=== PATIENT | female | born 1950 | race Caucasian/White ===

== ENCOUNTER 2021-04-04 08:11 | Outpatient (REF) | payer MEDICARE, SELFPAY ==
--- NOTE | ~2021-04-04 | XR_ITS ---
EXAMINATION: XR PELVIS CLINICAL INFORMATION: Pain COMPARISON: Previous x-ray most recent June 2019 TECHNIQUE: AP view of the pelvis. FINDINGS: There is a left hip replacement in satisfactory position. No fracture, dislocation or x-ray evidence of loosening is seen. There is arthritis at the right hip joint. Bones of the pelvis are unremarkable. Soft tissues are unremarkable. XR/XR pelvis 1-2V IMPRESSION: Satisfactory appearance of left hip replacement. Right hip arthritis.
== END 2021-04-04 08:12 | disposition home or self-care (01) ==
LOC: HO.HOSX 08:11
PROVIDERS: Visit Provider Orthopaedic Surgery
DX: M16.11 Unilateral primary osteoarthritis, right hip (principal); Z96.653 Presence of artificial knee joint, bilateral; Z96.642 Presence of left artificial hip joint
CPT/HCPCS: 72170; 99212

== ENCOUNTER → 2021-06-30 12:20 | Outpatient (BNVA) | payer MEDICARE, SELFPAY | PROVIDERS: PCP Family Medicine; Visit Provider Physician Assistant | DX: M16.11 Unilateral primary osteoarthritis, right hip (principal) | CPT/HCPCS: 99212 ==

== ENCOUNTER 2021-07-05 11:01 | Inpatient (IN) | payer MEDICARE, SELFPAY ==
[2021-06-28 11:57] VITALS: BP 130/83; PULSE 78; RESP 16; O2SAT 98; BMI 35.4
--- NOTE | 2021-06-28 12:33 | HO.ANESPROP2 ---
Documented by User: Lay Mansfield NP 07/04/21 10:19 HPI - Anesthesia Eval Consult details Narrative: 71yo F for Right Total Hip Cardiac cleared Elquis for new afib (to bridge with lovenox per cardiac clearance) s/p L CHAPINCITO 04/2019 with GA (no issues) *Allergy to oxycodone* PMFSH Active Problems Active Problems: All Active Problems (Updated 04/04/21 @ 10:58 by Robinson Gomez MD) Primary osteoarthritis of right hip (Acute) Past Medical History Medical History A-fib Acid reflux Arthritis History of transient ischemic attack Surgical History Surgical History History of back surgery History of hip surgery History of knee surgery Hx of bilateral cataract extraction Hx of colonoscopy Social History Social History Are you a primary skin care specialist to a significant other at home: No Do you presently have visiting nurse or other home services: No Alcohol intake: never Patient Tobacco Use Status: Former Tobacco user Quit Date: 2009 Tobacco use type: Cigarette Years Smoked: 50 Use of substances other than those prescribed or required for medical reasons: No Have you been hit, kicked, punched, or otherwise hurt by someone within the past year? If so, by whom?: No Spiritual Healthcare Practices: none Confucianism Healthcare Practices: none Cultural Healthcare Practices: none Are you DNR?: No Advance Directives: Yes Advance Directives Information Provided: Yes Advance Directives on File: Yes Advance Directives Date on File: 06/28/21 Recently lost weight without trying: No Current occupational status: retired Current occupation: right handed Narrative Narrative: No recent illness No CP/SOB with grocery shopping. Activity limited to pain Meds Allergies Allergy/AdvReac Type Severity Reaction Status Date / Time ibuprofen Allergy Intermediate Insomnia, Verified 06/30/21 12:34 leg tremors oxycodone [OXYCODONE] Allergy Intermediate SOB,PALPATATIONS, Verified 06/30/21 12:34 itching Home Medications Medication Instructions Recorded Confirmed Last Taken Type fluconazole 150 mg tablet 150 mg PO QWEEK 04/04/21 06/28/21 Unknown History omeprazole 20 mg capsule,delayed 20 mg PO DAILY PRN 04/04/21 06/28/21 07/05/21 History release Lovenox 06/28/21 07/04/21 History apixaban 5 mg tablet (Eliquis) 1 tab PO BID 06/28/21 06/28/21 06/30/21 History atorvastatin 80 mg tablet 1 tab PO BEDTIME 06/28/21 06/28/21 Unknown History diltiazem HCl 120 mg 1 cap PO DAILY 06/28/21 06/28/21 07/05/21 History capsule,extended release 24 hr Exam Exam Date and Time: June 28, 2021 1233 Height,Weight and Vital Signs: Height 5 ft 9 in Weight 108.862 kg Last Vital Signs Pulse 78 06/28/21 11:57 Resp 16 06/28/21 11:57 BP 130/83 06/28/21 11:57 Pulse Ox 98 06/28/21 11:57 Pertinent Lab Results Pertinent Lab Results: Lab Results 06/28/21 06/28/21 06/28/21 Range/Units 12:30 13:45 Unknown WBC 6.3 (4.8-10.8) X10*3/uL RBC 4.35 (4.20-5.50) X10*6/uL Hgb 13.2 (12.0-16.0) g/dl Hct 39.8 (37-47) % MCV 91.5 (80-98) fL MCH 30.3 (27.0-33.0) pg MCHC 33.2 (31.0-35.0) g/dl RDW 13.1 (11.0-16.0) % Plt Count 342 (160-400) X10*3/uL MPV 9.3 L (9.4-12.3) fL Absolute Nucleated RBC 0.000 (0.0-0.012) X10*3/uL Nucleated RBC % (auto) 0.0 (0.0-0.2) /100WBC Sodium (135-145) mmol/L Potassium (3.3-5.1) mmol/L Chloride (96-108) mmol/L Carbon Dioxide (22-29) mmol/L Anion Gap (12-20) BUN (9-16) mg/dL Creatinine (0.5-1.4) mg/dL Estim Creat Clear Calc Estimated GFR Random Glucose (60-115) mg/dL Calcium (8.4-10.2) mg/dL Nasal Screen MRSA (PCR) NEGATIVE (Negative) Nasal S. aureus Screen POSITIVE A (Negative) Nasal MRSA/S.aureus Interp SEE NOTE Blood Type A Negative Antibody Screen NEGATIVE 06/28/21 Range/Units Unknown WBC (4.8-10.8) X10*3/uL RBC (4.20-5.50) X10*6/uL Hgb (12.0-16.0) g/dl Hct (37-47) % MCV (80-98) fL MCH (27.0-33.0) pg MCHC (31.0-35.0) g/dl RDW (11.0-16.0) % Plt Count (160-400) X10*3/uL MPV (9.4-12.3) fL Absolute Nucleated RBC (0.0-0.012) X10*3/uL Nucleated RBC % (auto) (0.0-0.2) /100WBC Sodium 141 (135-145) mmol/L Potassium 4.6 (3.3-5.1) mmol/L Chloride 105 (96-108) mmol/L Carbon Dioxide 27 (22-29) mmol/L Anion Gap 14 (12-20) BUN 9 (9-16) mg/dL Creatinine 0.68 (0.5-1.4) mg/dL Estim Creat Clear Calc 96.8 Estimated GFR > 60 Random Glucose 85 (60-115) mg/dL Calcium 9.6 (8.4-10.2) mg/dL Nasal Screen MRSA (PCR) (Negative) Nasal S. aureus Screen (Negative) Nasal MRSA/S.aureus Interp Blood Type Antibody Screen Narrative Narrative: EKG 06/2021 NSR @ 80 Minimal voltage criteria for LVH, may be normal variant Inferior infarct cited on or before 04/2021 Abnormal ECG When compared to ECG of 06/2021 no significant change was found ECHO 04/2021 1.LV size is normal, LV wall thickness is mildly increased, mild concentric LVH, LV systolic function is normal. LVEF 55-60%. No RWMA. Diastolic function is indeterminate 2.LA is mildly dilated. No right to left shunting with bubble study. 3.RV is mildly dilated. RV systolic function is preserved. 4.Aortic root is normal in size. Mild dilation of ascending aorta @ 3.9cm 5. Mild MAC. Mitral valve appears mildly thickened and calcified. Mild Mitral Regurg 6. Pulm artery systolic pressure wnl Airway Mallampati Class: II TM Dist: >3cm Neck ROM: Full Adult Head Mouth w/Numbe Teeth: 1. Crowned Loose/Missing/Broken Teeth: No (Crowns throughout) Heart: RRR Lungs: CTAB Assessment and Plan Assessment Anesthesia Assessment: Anesthesia Plan Discussed and PAT Visit Documented by User: Lida Corrales MD 07/05/21 12:02 REPLACED BY [facility] Past Medical History Medical History A-fib Acid reflux Arthritis History of transient ischemic attack Family History Family history of problems with anesthesia: No Surgical History Surgical History History of back surgery History of hip surgery History of knee surgery Hx of bilateral cataract extraction Hx of colonoscopy History of Problems with Anesthesia: No Social History Social History Are you a primary skin care specialist to a significant other at home: No Do you presently have visiting nurse or other home services: No Alcohol intake: never Patient Tobacco Use Status: Former Tobacco user Quit Date: 2009 Tobacco use type: Cigarette Years Smoked: 50 Use of substances other than those prescribed or required for medical reasons: No Have you been hit, kicked, punched, or otherwise hurt by someone within the past year? If so, by whom?: No Spiritual Healthcare Practices: none Confucianism Healthcare Practices: none Cultural Healthcare Practices: none Are you DNR?: No Advance Directives: Yes Advance Directives Information Provided: Yes Advance Directives on File: Yes Advance Directives Date on File: 06/28/21 Recently lost weight without trying: No Current occupational status: retired Current occupation: right handed Meds Allergies Allergy/AdvReac Type Severity Reaction Status Date / Time ibuprofen Allergy Intermediate Insomnia, Verified 06/30/21 12:34 leg tremors oxycodone [OXYCODONE] Allergy Intermediate SOB,PALPATATIONS, Verified 06/30/21 12:34 itching Home Medications Medication Instructions Recorded Confirmed Last Taken Type fluconazole 150 mg tablet 150 mg PO QWEEK 04/04/21 06/28/21 Unknown History omeprazole 20 mg capsule,delayed 20 mg PO DAILY PRN 04/04/21 06/28/21 07/05/21 History release Lovenox 06/28/21 07/04/21 History apixaban 5 mg tablet (Eliquis) 1 tab PO BID 06/28/21 06/28/21 06/30/21 History atorvastatin 80 mg tablet 1 tab PO BEDTIME 06/28/21 06/28/21 Unknown History diltiazem HCl 120 mg 1 cap PO DAILY 06/28/21 06/28/21 07/05/21 History capsule,extended release 24 hr Exam Airway Adult Head Mouth w/Numbe Teeth: 1. Crowned Assessment and Plan Final Anesthetic Review Family History of Problems with Anesthesia: No History of Problems with Anesthesia: No NPO: Yes Final Preanesthetic Review: No Changes in Pt Med Stat, Meds/Allgs Chart Reviewed, Consent Obtained/Reviewed and Anes Risks/Benef Reviewed Patient Risk: Intermediate Procedure Risk: Intermediate Assessment/Block/Sedation in : Assess/Block/Sedation- Anesthetic Plan Anesthetic Plan: GA
[2021-06-28 15:24] LABS: MRSA Nasal PCR NEGATIVE (Negative); SA Nasal PCR POSITIVE (Negative)
[2021-06-28 15:27] LABS: Anion Gap 14 (12-20); Blood Urea Nitrogen 9 mg/dL (9-16); Calcium 9.6 mg/dL (8.4-10.2); Carbon Dioxide 27 mmol/L (22-29); Chloride 105 mmol/L (96-108); Creatinine Clr Calc Pharmacy 96.8; Estimated Glomerular Filt Rate > 60; Glucose Random 85 mg/dL (60-115); Hematocrit 39.8 % (37-47); Hemoglobin 13.2 g/dl (12.0-16.0); Mean Corpuscular HGB Conc 33.2 g/dl (31.0-35.0); Mean Corpuscular Hemoglobin 30.3 pg (27.0-33.0); Mean Corpuscular Volume 91.5 fL (80-98); Mean Platelet Volume 9.3 fL (9.4-12.3); Platelet Count 342 X10*3/uL (160-400); Potassium 4.6 mmol/L (3.3-5.1); Red Blood Count 4.35 X10*6/uL (4.20-5.50); Red Cell Distribution Width 13.1 % (11.0-16.0); Sodium 141 mmol/L (135-145); White Blood Count 6.3 X10*3/uL (4.8-10.8)
[2021-07-05] VITALS (9 sets, daily range): BP systolic 115–149; BP diastolic 55–85; PULSE 70–88; RESP 6–19; TEMP 36–37.1; O2SAT 90–99
--- NOTE | ~2021-07-05 | XR_ITS ---
EXAMINATION: XR PELVIS CLINICAL INFORMATION: Right hip replacement COMPARISON: Previous x-ray March 2021 TECHNIQUE: AP view of the pelvis. FINDINGS: There is a new right hip replacement in satisfactory position. No fracture or dislocation is seen. Soft tissues are normal. XR/XR pelvis 1-2V IMPRESSION: Satisfactory appearance of right hip replacement.
[2021-07-05] MEDS: Lactated Ringers 1,000 ML 100 ML IVCONT (11:31)
[2021-07-05 11:49] LABS: COVID-19 Test Negative (Negative)
--- NOTE | 2021-07-05 11:50 | MHC.SHP ---
Pre-Procedural Eval Section A Date of Service: 07/05/21 The patient is an INPATIENT: No Changes since office visit: Yes Patient answered all questions; No Cold of Flu in the past 2 weeks, No New Medical Problems and No Changes in Medication The History & Physical has been completed within 30 days and I have reviewed it.: Yes Section B Chief Complaint: RT CHAPINCITO Allergies: Allergies Allergy/AdvReac Type Severity Reaction Status Date / Time ibuprofen Allergy Intermediate Insomnia, Verified 06/30/21 12:34 leg tremors oxycodone [OXYCODONE] Allergy Intermediate SOB,PALPATATIONS, Verified 06/30/21 12:34 itching Plan I have reviewed the history and physical and performed a pertinent physical examination on my patient. No changes have occurred unless specified.
--- NOTE | 2021-07-05 14:50 | P.BOP_ITS ---
Brief Operative Note Date of Service: 07/05/21 Pre-op diagnosis: right hip OA Post-op diagnosis: same Procedure: right CHAPINCITO Implants: Karley trident2 54 wityh 20 deg lip liner and accolade2 #4 132 with +2.5 36 ceramic Surgeon: Robinson Gomez MD Anesthesia: GLMA and local Was an Creamery Worker used for this Procedure?: Yes Creamery Worker: Susy Cordova Estimated blood loss (mL): 250 IV fluids (mL): 1,200 Pathology: other Condition: stable Disposition: PACU
--- NOTE | 2021-07-05 14:52 | W.PM.OPN ---
Operative Note Operative Note Date of Service: 07/05/21 Narrative: Pre-op diagnosis: right hip OA Post-op diagnosis: same Procedure: right CHAPINCITO Implants: Karley trident2 54 wityh 20 deg lip liner and accolade2 #4 132 with +2.5 36 ceramic Surgeon: Robinson Gomez MD Anesthesia: GLMA and local Was an Fish Hatchery Supervisor used for this Procedure?: Yes Fish Hatchery Supervisor: Susy Cordova Estimated blood loss (mL): 250 IV fluids (mL): 1,200 Pathology: other Condition: stable Disposition: PACU Procedure in detail: Patient was brought into the operating room and placed in the lateral decubitus position. All bony prominences were well padded and the limb was prepped and draped in standard sterile fashion. Time-out was called to identify proper site procedure proper surgeon IV antibiotics and 1 g of transamix acid were administered. I began by making a curvilinear incision over the posterolateral aspect of the greater trochanter. Dissection was taken down to the tensor fascia which was incised in line with the incision and a Charnley retractor was placed. Cautery was used to maintain hemostasis as well as the Werewolf (johnson and Nephew). The hip was internally rotated and the external rotators were identified. The vessels were cauterized and a full-thickness capsular/external rotator layer was developed starting just proximal to the piriformis. THis layer was tagged and a dull Hohmann retractor was placed underneath the neck in the hip was dislocated. ___The head was eburnated. A neck cut was made 1 cm proximal to the lesser trochanter and the head and neck were removed and measured on the back table. I then placed my anterior-posterior acetabular retractors and performed a labrectomy. The head measured a 50____ I medialized after removeing the fovea and the labrum. I then sequentially reamed up to a size _54_ and bleeding bone and impacted at approximately 45 degrees of inclination and 25 degrees of version. I then placed a __20 deg liner and turned my attention to the femur. I identified the piriformis insertion and used this as a starting point for my sonjaie cutter. The medius tendon was protected with a Hibs retractor. I then used a Charnley awl to identify the canal and a curved curette to remove the lateral bone. I then sequentially broached in the patient's natural version to a size _4___ and placed my trial implants. Using a ____+2.5 I took the hip through range of motion. I was satisfied with the stability and length. Therefore I removed all instrumentation copiously irrigated placed my final femoral implant. I again took the hip through range of motion and was satisfied with the stability and length and so my final femoral head was impacted in place. I then irrigated for 3 minutes with iodine and placed 1 g of local TXA. I then performed a capsular closure with FiberWire, Suleman's fascia with 0 Vicryl, subcuticular with 2-0 vicryl and skin with jaquelin. Patient was placed into a sterile dressing. Radiographs were obtained at the completion of the case and I was satisfied with the component position. Patient was extubated brought to the recovery room in stable condition.
[2021-07-05] MEDS: 0.9 % Sodium Chloride Flush 3 ML SYRINGE IVFLUSH (16:32)
[2021-07-05] MEDS: Dextrose 5 % and 0.9 % NaCl 1,000 ML 80 ML IVCONT (16:32)
[2021-07-05] MEDS: Acetaminophen 325 MG TABLET 650 MG PO ×2 (16:36→22:27)
--- NOTE | 2021-07-05 16:51 | P.CONHOSP_ITS ---
History of Present Illness Data of Consult Service Date: 07/05/21 Requesting physician: Robinson Gomez Primary Care Provider: Rebecca Reyes MD HPI Reason for consult: Med management 71-year-old female status post right total hip replacement; asked to see for med management. Doing excellent postop. Has been out of bed to bathroom without issue. Utilizing only Tylenol for pain. No other focal complaints Review of Systems Review of Systems: Denies chest pain Denies shortness of breath Denies nausea vomiting PMFSH Medical History A-fib Acid reflux Arthritis History of transient ischemic attack Pertinent family history: pt not aware of pertinent famhx Surgical History History of back surgery History of hip surgery History of knee surgery Hx of bilateral cataract extraction Hx of colonoscopy Social History Are you a primary critical care physician assistant to a significant other at home: No Do you presently have visiting nurse or other home services: No Alcohol intake: never Patient Tobacco Use Status: Former Tobacco user Quit Date: 2009 Tobacco use type: Cigarette Years Smoked: 50 Use of substances other than those prescribed or required for medical reasons: No Have you been hit, kicked, punched, or otherwise hurt by someone within the past year? If so, by whom?: No Spiritual Healthcare Practices: none Bahai Healthcare Practices: none Cultural Healthcare Practices: none Are you DNR?: No Advance Directives: Yes Advance Directives Information Provided: Yes Advance Directives on File: Yes Advance Directives Date on File: 06/28/21 Recently lost weight without trying: No Current occupational status: retired Current occupation: right handed Meds Allergies Allergy/AdvReac Type Severity Reaction Status Date / Time ibuprofen Allergy Intermediate Insomnia, Verified 06/30/21 12:34 leg tremors oxycodone [OXYCODONE] Allergy Intermediate SOB,PALPATATIONS, Verified 06/30/21 12:34 itching Active Medications: Current Medications Acetaminophen (Acetaminophen 325 Mg Tablet) 650 mg PO Q6H PRN PRN Reason: Pain, Mild (Pain Scale 1-3) Last Admin: 07/05/21 16:36 Dose: 650 mg Documented by: Docusate Sodium (Docusate Sodium 100 Mg Capsule) 100 mg PO BID [facility] Dextrose/Sodium Chloride (D5ns) 1,000 mls @ 80 mls/hr IVCONT .[id number] [facility] Last Admin: 07/05/21 16:32 Dose: 80 mls/hr Documented by: Cefazolin Sodium/Dextrose (Ancef) 2 gm in 50 mls @ 100 mls/hr IV POSTOP [facility] Morphine Sulfate (Morphine Sulfate Immed Release 15 Mg Tablet) 15 mg PO Q4H PRN PRN Reason: Pain, Moderate (Pain Scale 4-6 Ondansetron HCl (Ondansetron Hcl 4 Mg/2 Ml Vial) 4 mg IVPUSH Q8H PRN PRN Reason: Nausea and Vomiting Sodium Chloride (0.9 % Sodium Chloride Flush 3 Ml Syringe) 3 ml IVFLUSH QSHIFT [facility] Last Admin: 07/05/21 16:32 Dose: 3 ml Documented by: Home Medications Medication Instructions Recorded Confirmed Last Taken Type fluconazole 150 mg tablet 150 mg PO QWEEK 04/04/21 06/28/21 Unknown History omeprazole 20 mg capsule,delayed 20 mg PO DAILY PRN 04/04/21 06/28/21 07/05/21 History release Lovenox 06/28/21 07/04/21 History apixaban 5 mg tablet (Eliquis) 1 tab PO BID 06/28/21 06/28/21 06/30/21 History atorvastatin 80 mg tablet 1 tab PO BEDTIME 06/28/21 06/28/21 Unknown History diltiazem HCl 120 mg 1 cap PO DAILY 06/28/21 06/28/21 07/05/21 History capsule,extended release 24 hr Physical Exam Vital Signs and Narrative: Vital Signs: Last Vital Signs Temp 97.7 F 07/05/21 16:00 Pulse 81 07/05/21 16:00 Resp 19 07/05/21 16:00 BP 123/65 07/05/21 16:00 Pulse Ox 93 07/05/21 16:00 Body Mass Index 35.4 Resp: Auscultation: clear to auscultation bilaterally, no rales, no rhonchi and no wheezes Cardio: Rate: regular rate Rhythm: regular rhythm Heart sounds: S1 normal heart sound present, S2 normal heart sound present and no murmurs GI: Other: Soft nontender nondistended with normoactive bowel sounds. There is no overt peritoneal signs Extrem: Other: No edema bilaterally. Distal pulses intact. Dressing to right hip clean dry and intact Results Labs CBC and Chem 7: 06/28/21 Unknown 06/28/21 Unknown Labs: Laboratory Results - last 24 hr 07/05/21 10:59 COVID-19 (TOMMY) Negative COVID-19 Clin Com See Note Imaging Radiologist's Impressions: Impressions Pelvis X-Ray 07/05/21 13:51 IMPRESSION: Satisfactory appearance of right hip replacement. Assessment and Plan (1) Primary osteoarthritis of right hip: Status: Acute (2) Hyperlipidemia: Status: Acute (3) Paroxysmal atrial fibrillation: Status: Acute
[2021-07-05] MEDS: Docusate Sodium 100 MG CAPSULE PO (22:27)
[2021-07-05] MEDS: Atorvastatin Calcium 80 MG TABLET PO (22:28)
[2021-07-06] VITALS (9 sets, daily range): BP systolic 127–143; BP diastolic 55–80; PULSE 81–95; RESP 18; TEMP 36.1–38.1; O2SAT 95–98
[2021-07-06] MEDS: Dextrose 5 % and 0.9 % NaCl 1,000 ML 80 ML IVCONT ×2 (04:34→16:18)
[2021-07-06 05:42] LABS: MANUAL DIFF FLAG NO
[2021-07-06 05:52] LABS: Basophils Percent Auto 0.1 % (0-2); Eosinophils Percent Auto 0.1 % (0-4); Hematocrit 32.1 % (37-47); Hemoglobin 10.6 g/dl (12.0-16.0); Imm Gran Abs Auto 0.03 X10*3/uL (0.00-0.03); Imm Gran Pct Auto 0.3 % (0.0-0.4); Lymphocytes Percent Auto 11.3 % (20-40); Mean Corpuscular Hemoglobin 30.4 pg (27.0-33.0); Mean Platelet Volume 8.9 fL (9.4-12.3); Monocytes Absolute Auto 0.8 X10*3/uL (0.1-1.2); Monocytes Percent Auto 9.3 % (2-11); Neutrophils Absolute Auto 6.9 X10*3/uL (2.0-8.3); Neutrophils Percent Auto 78.9 % (45-73); Platelet Count 251 X10*3/uL (160-400); Red Blood Count 3.49 X10*6/uL (4.20-5.50); Red Cell Distribution Width 13.2 % (11.0-16.0); White Blood Count 8.7 X10*3/uL (4.8-10.8)
[2021-07-06 06:34] LABS: Anion Gap 15 (12-20); Blood Urea Nitrogen 9 mg/dL (9-16); Calcium 8.6 mg/dL (8.4-10.2); Carbon Dioxide 22 mmol/L (22-29); Chloride 106 mmol/L (96-108); Creatinine Clr Calc Pharmacy 106.2; Estimated Glomerular Filt Rate > 60; Glucose Fasting 139 mg/dL (60-99); Potassium 4.3 mmol/L (3.3-5.1); Sodium 139 mmol/L (135-145)
--- NOTE | 2021-07-06 07:54 | P.PNOP_ITS ---
Subjective Subjective Date of Service: 07/06/21 Interval history: POD1 s/p RTHA. Patient is resting comfortably in the chair. Pain is well managed. No overnight events. No additional complaints. Physical Exam Vital Signs: Vital Signs: Last Vital Signs Temp 97 F 07/06/21 04:00 Pulse 87 07/06/21 04:00 Resp 18 07/06/21 04:00 BP 141/70 H 07/06/21 04:00 Pulse Ox 96 07/06/21 04:00 Body Mass Index 35.4 Const: General: cooperative, healthy appearing and no acute distress Resp: Effort & Inspection: normal respiratory effort and able to speak in complete sentences Cardio: Rate: regular rate Peripheral pulses: Peripheral pulses 2+ throughout GI: Palpation (GI): Soft to palpation Skin: Lesions: no lesions Rashes: no rashes Extrem: Other: Right hip no ecchymosis, redness, or drainage. Aquacel is clean, dry, and intact. NVI. Procedures Date of Service Date of Service: 07/06/21 Progress Note: A&P Assessment and plan (1) S/P total hip arthroplasty: Status: Acute Assessment and Plan: Continue pain mgmnt Begin Lovenox for dvt ppx begin PT for RTHA Dispo planning-Pending PT eval, pain mgmnt Fall Risk Details Current Medications: Current Medications Acetaminophen (Acetaminophen 325 Mg Tablet) 650 mg PO Q6H PRN PRN Reason: Pain, Mild (Pain Scale 1-3) Last Admin: 07/05/21 22:27 Dose: 650 mg Documented by: Atorvastatin Calcium (Atorvastatin Calcium 80 Mg Tablet) 80 mg PO BEDTIME [facility] Last Admin: 07/05/21 22:28 Dose: 80 mg Documented by: Diltiazem HCl (Diltiazem Hcl Cd 120 Mg Cap.Er.Deg) 120 mg PO DAILY [facility]; Protocol Docusate Sodium (Docusate Sodium 100 Mg Capsule) 100 mg PO BID [facility] Last Admin: 07/05/21 22:27 Dose: 100 mg Documented by: Enoxaparin Sodium (Enoxaparin Sodium 40 Mg/0.4 Ml Syringe) 40 mg SUBCUT Q24H [facility] Dextrose/Sodium Chloride (D5ns) 1,000 mls @ 80 mls/hr IVCONT .[id number] [facility] Last Admin: 07/06/21 04:34 Dose: 80 mls/hr Documented by: Cefazolin Sodium/Dextrose (Ancef) 2 gm in 50 mls @ 100 mls/hr IV POSTOP [facility] Morphine Sulfate (Morphine Sulfate Immed Release 15 Mg Tablet) 15 mg PO Q4H PRN PRN Reason: Pain, Moderate (Pain Scale 4-6 Omeprazole (Omeprazole 20 Mg Capsule.Dr) 20 mg PO DAILY PRN PRN Reason: Gastric Reflux Ondansetron HCl (Ondansetron Hcl 4 Mg/2 Ml Vial) 4 mg IVPUSH Q8H PRN PRN Reason: Nausea and Vomiting Sodium Chloride (0.9 % Sodium Chloride Flush 3 Ml Syringe) 3 ml IVFLUSH QSHIFT [facility] Last Admin: 07/06/21 07:33 Dose: Not Given Documented by: Time Spent With Patient Time: Total time spent is greater than 50% in coordination of care (as do cumented) at patient's floor/unit and/or counseling patient: Time with patient: less than 15 minutes Quality Stroke Does the patient have a stroke diagnosis?: No VTE Prior VTE?: No VTE Risk Level:: Surgical - very high VTE Device Contraindication: N/A - Device Ordered VTE Drug Contraindication: N/A - Med Ordered
[2021-07-06] MEDS: dilTIAZem HCL CD 120 MG CAP.ER.DEG PO (08:37)
[2021-07-06] MEDS: Acetaminophen 325 MG TABLET 650 MG PO ×2 (08:37→19:33)
[2021-07-06] MEDS: Docusate Sodium 100 MG CAPSULE PO ×2 (08:37→19:32)
--- NOTE | 2021-07-06 11:08 | P.PNIM_ITS ---
Subjective Subjective Date of Service: 07/06/21 Interval History: Doing excellent postop day 1. Ambulated in the hallway with walker. Pain control adequate. No complaints Review of Systems Denies chest pain Denies short of breath Denies nausea Physical Exam Vital Signs: Vital Signs: Last Vital Signs Temp 98.1 F 07/06/21 07:52 Pulse 81 07/06/21 09:10 Resp 18 07/06/21 07:52 BP 134/64 07/06/21 09:10 Pulse Ox 98 07/06/21 07:52 Body Mass Index 35.4 Const: General: no acute distress Resp: Auscultation: clear to auscultation bilaterally, no rales, no rhonchi and no wheezes Cardio: Rate: regular rate Rhythm: regular rhythm Heart sounds: S1 normal heart sound present, S2 normal heart sound present and no murmurs GI: Other: Soft nontender nondistended with normoactive bowel sounds. No peritoneal signs Neuro: Other: Age-appropriate; nonfocal Extrem: Other: Right hip dressing clean dry and intact General: Yes normal to inspection Objective Data Active Medications Acetaminophen (Acetaminophen 325 Mg Tablet) 650 mg PO Q6H PRN PRN Reason: Pain, Mild (Pain Scale 1-3) Last Admin: 07/06/21 08:37 Dose: 650 mg Documented by: MACHO Atorvastatin Calcium (Atorvastatin Calcium 80 Mg Tablet) 80 mg PO BEDTIME [facility] Last Admin: 07/05/21 22:28 Dose: 80 mg Documented by: ERIK Diltiazem HCl (Diltiazem Hcl Cd 120 Mg Cap.Er.Deg) 120 mg PO DAILY [facility]; Protocol Last Admin: 07/06/21 08:37 Dose: 120 mg Documented by: MACHO Docusate Sodium (Docusate Sodium 100 Mg Capsule) 100 mg PO BID [facility] Last Admin: 07/06/21 08:37 Dose: 100 mg Documented by: MACHO Enoxaparin Sodium (Enoxaparin Sodium 40 Mg/0.4 Ml Syringe) 40 mg SUBCUT Q24H [facility] Dextrose/Sodium Chloride (D5ns) 1,000 mls @ 80 mls/hr IVCONT .[id number] [facility] Last Admin: 07/06/21 04:34 Dose: 80 mls/hr Documented by: ERIK Cefazolin Sodium/Dextrose (Ancef) 2 gm in 50 mls @ 100 mls/hr IV POSTOP JT Morphine Sulfate (Morphine Sulfate Immed Release 15 Mg Tablet) 15 mg PO Q4H PRN PRN Reason: Pain, Moderate (Pain Scale 4-6 Omeprazole (Omeprazole 20 Mg Capsule.Dr) 20 mg PO DAILY PRN PRN Reason: Gastric Reflux Ondansetron HCl (Ondansetron Hcl 4 Mg/2 Ml Vial) 4 mg IVPUSH Q8H PRN PRN Reason: Nausea and Vomiting Sodium Chloride (0.9 % Sodium Chloride Flush 3 Ml Syringe) 3 ml IVFLUSH QSHIFT JT Last Admin: 07/06/21 07:33 Dose: Not Given Documented by: COTEMA Non-Admin Reason: IV Running Labs CBC & Chem 7: 07/06/21 05:26 07/06/21 05:26 Labs: Laboratory Results - last 24 hr 07/05/21 07/06/21 07/06/21 10:59 05:26 05:26 MCV 92.0 MCH 30.4 MCHC 33.0 RDW 13.2 Plt Count 251 D MPV 8.9 L Immature Gran % (Auto) 0.3 Neut % (Auto) 78.9 H Lymph % (Auto) 11.3 L [place] % (Auto) 9.3 Eos % (Auto) 0.1 Baso % (Auto) 0.1 Lymph # (Auto) 1.0 L [place] # (Auto) 0.8 Eos # (Auto) 0.0 Baso # (Auto) 0.0 Abs Immat Gran (auto) 0.03 Absolute Neuts (auto) 6.9 Absolute Nucleated RBC 0.000 Nucleated RBC % (auto) 0.0 Anion Gap 15 Estim Creat Clear Calc 106.2 Estimated GFR > 60 Fasting Glucose 139 H Calcium 8.6 D COVID-19 (TOMMY) Negative COVID-19 Clin Com See Note Assessment and Plan (1) S/P total hip arthroplasty: Status: Acute Assessment and Plan: Doing excellent. Plans as per Ortho (2) Paroxysmal atrial fibrillation: Status: Acute Assessment and Plan: Exam is in normal sinus rhythm however on Eliquis to routinely. Consider starting as opposed to Lovenox (3) Hyperlipidemia: Status: Acute (4) GERD (gastroesophageal reflux disease): Status: Acute Assessment and Plan: Continue PPI as ordered Assessment and Plan: Further plans based on clinical course of forthcoming data Quality Stroke Does the patient have a stroke diagnosis?: No VTE Prior VTE?: No VTE Risk Level:: Surgical - very high VTE Device Contraindication: Treatment Not Indicated VTE Drug Contraindication: N/A - Med Ordered
[2021-07-06] MEDS: Enoxaparin Sodium 40 MG/0.4 ML SYRINGE SUBCUT (11:42)
[2021-07-06] MEDS: Morphine Sulfate Immed Release 15 MG TABLET PO ×2 (11:45→19:32)
--- NOTE | 2021-07-06 13:12 | MHC.CM.PN ---
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 CM TO RETURN. PHYSICAL THERAPY IS RECOMMENDING HOME WITH SERVICES. THIS WILL BE DISCUSSED AT TIME OF ASSESSMENT.
--- NOTE | 2021-07-06 14:18 | MHC.CM.PN ---
Addendum entered by Laly Ponce 07/06/21 16:08: [facility] Addendum entered by Laly Ponce 07/06/21 15:27: [facility] UNABLE TO OFFER. [facility] IS ONLY REFERRAL CURRENTLY INTERESTED. CASE MANAGEMENT WILL FOLLOW UP Original Note: PATIENT HAD [facility] AT TIME OF LAST DC. SHE WOULD LIKE TO ATTEMPT THIS AGENCY AGAIN. REFERRAL PLACED AND CASE MANAGEMENT FOLLOWING
--- NOTE | 2021-07-06 15:08 | HO.POSTANES ---
Post Anesthesia Evaluation Post Anesthesia Evaluation Vital Signs: Vital Signs Temp Pulse Resp BP Pulse Ox 07/06/21 14:16 95 143/80 H 97 07/06/21 12:00 98.2 F 95 18 143/80 H 97 07/06/21 09:10 81 134/64 07/06/21 08:37 81 134/64 07/06/21 07:52 98.1 F 81 18 134/64 98 07/06/21 04:00 97 F 87 18 141/70 H 96 Anesthesia: General Mental Status: Awake Pain Control: Satisfactory Nausea/Vomiting: None Hydration: Adequate Anesthesia-Related Issues: No Anes. Related Issues
[2021-07-06] MEDS: Omeprazole 20 MG CAPSULE.DR PO (16:59)
[2021-07-06] MEDS: Atorvastatin Calcium 80 MG TABLET PO (19:34)
[2021-07-07] VITALS (9 sets, daily range): BP systolic 107–144; BP diastolic 58–93; PULSE 74–151; RESP 16–18; TEMP 36.2–37.3; O2SAT 92–98
--- NOTE | 2021-07-07 | ECG_ITS ---
Test Reason : rhythm Blood Pressure : / mmHG Vent. Rate : 109 BPM Atrial Rate : 300 BPM P-R Int : 000 ms QRS Dur : 082 ms QT Int : 300 ms P-R-T Axes : -88 -09 -71 degrees QTc Int : 404 ms Atrial flutter with variable A-V block Minimal voltage criteria for LVH, may be normal variant Inferior infarct , age undetermined Abnormal ECG When compared with ECG of 07-JUL-2021 10:57, Vent. rate has decreased ST less depressed in Anterolateral leads Referred By: Cristina Chakraborty Electronically Signed By:ANATOLIY WILL
[2021-07-07] MEDS: Dextrose 5 % and 0.9 % NaCl 1,000 ML 80 ML IVCONT (04:10)
[2021-07-07 06:04] LABS: Basophils Percent Auto 0.2 % (0-2); Eosinophils Absolute Auto 0.1 X10*3/uL (0.0-0.4); Eosinophils Percent Auto 0.6 % (0-4); Hematocrit 30.8 % (37-47); Hemoglobin 10.2 g/dl (12.0-16.0); Imm Gran Abs Auto 0.03 X10*3/uL (0.00-0.03); Imm Gran Pct Auto 0.3 % (0.0-0.4); Lymphocytes Absolute Auto 1.3 X10*3/uL (1.2-4.9); Lymphocytes Percent Auto 14.9 % (20-40); MANUAL DIFF FLAG NO; Mean Corpuscular HGB Conc 33.1 g/dl (31.0-35.0); Mean Corpuscular Volume 93.6 fL (80-98); Monocytes Percent Auto 11.9 % (2-11); Neutrophils Absolute Auto 6.2 X10*3/uL (2.0-8.3); Neutrophils Percent Auto 72.1 % (45-73); Platelet Count 212 X10*3/uL (160-400); Red Blood Count 3.29 X10*6/uL (4.20-5.50); Red Cell Distribution Width 13.6 % (11.0-16.0); White Blood Count 8.7 X10*3/uL (4.8-10.8)
[2021-07-07 07:02] LABS: Anion Gap 8 (12-20); Blood Urea Nitrogen 8 mg/dL (9-16); Calcium 7.9 mg/dL (8.4-10.2); Carbon Dioxide 26 mmol/L (22-29); Chloride 106 mmol/L (96-108); Creatinine Clr Calc Pharmacy 109.7; Estimated Glomerular Filt Rate > 60; Glucose Fasting 126 mg/dL (60-99); Potassium 4.1 mmol/L (3.3-5.1); Sodium 136 mmol/L (135-145)
--- NOTE | 2021-07-07 08:25 | PM.DS ---
DS: Providers Provider Date of Service: 07/07/21 Date of admission: 07/05/21 11:01 Primary care physician: Rebecca Reyes MD Consults: 07/05/21 15:56 Consult to Hospitalist Routine Consulting Provider: Hospitalist Reason For Exam: medical management, A-fib on eliquis DS: Summary Hospital Course Hospital Course: The patient underwent a successful RT total hip arthroplasty, was transferred to PACU and then to the floor to recover. During their stay, their vitals were stable, afebrile at 98.7. Labs were unremarkable, H/H 9.8/29.7 . POD 1 She was started on Lovenox for DVT ppx, they also received PT/OT services twice a day. POD 2 she was noted to be tachycardic and in a flutter with a HR of 103. Cardiology was consulted and she was placed on a halter monitor and started on a Cardize Drip. POD 3 she continued to be in aflutter with rapid heart rate, Eliquis resumed, lovenox d/c. She was switched to PO Cardizem. POD 5 her HR normalized and she was asymptomatic, Follow-up outpatient Holter monitor with her own machine adjuster helper.? Continue Eliquis 5 mg b.i.d..? Blood pressure is optimized, her dressing was changed, incision clean dry and intact, new Aquacel dressing applied and the plan was to be discharged home with vna services. Time Spent with Patient Time attestation: Total time spent providing and/or coordinating discharge services: Discharge coordination time: Less than 30 minutes Quality: Stroke Does the patient have a stroke diagnosis?: No Physical Exam Vital Signs: Vital Signs: Last Vital Signs Temp 97.7 F 07/07/21 08:00 Pulse 151 H 07/07/21 08:00 Resp 18 07/07/21 08:00 BP 118/93 H 07/07/21 08:00 Pulse Ox 95 07/07/21 08:00 Body Mass Index 35.4 Extrem: Other: incision clean dry and intact. Diony intact. No erythema or joint effusion. Calf supple nontender. Neurovascularly intact. DS: Data Data Completed and Pending Pending studies at discharge: Pending at discharge 07/05/21 14:07 Surgical [PTH] Routine Labs on day of discharge: Laboratory Results - last 24 hr 07/07/21 07/07/21 05:25 05:25 WBC 8.7 RBC 3.29 L Hgb 10.2 L Hct 30.8 L MCV 93.6 MCH 31.0 MCHC 33.1 RDW 13.6 Plt Count 212 MPV 9.0 L Immature Gran % (Auto) 0.3 Neut % (Auto) 72.1 Lymph % (Auto) 14.9 L [place] % (Auto) 11.9 H Eos % (Auto) 0.6 Baso % (Auto) 0.2 Lymph # (Auto) 1.3 [place] # (Auto) 1.0 Eos # (Auto) 0.1 Baso # (Auto) 0.0 Abs Immat Gran (auto) 0.03 Absolute Neuts (auto) 6.2 Absolute Nucleated RBC 0.000 Nucleated RBC % (auto) 0.0 Sodium 136 Potassium 4.1 Chloride 106 Carbon Dioxide 26 Anion Gap 8 L BUN 8 L Creatinine 0.60 Estim Creat Clear Calc 109.7 Estimated GFR > 60 Fasting Glucose 126 H Calcium 7.9 L D Discharge Plan Discharge Patient Disposition: Home Health Service Discharge Diagnosis: RT [place]APIN[place]O Referrals: [facility] [Outside] - 1 Week Susy Cordova PA-C [[facility]] - 1 Week (07/21/21 1:45 [facility] Susy Cordova PA-C) Discharge Medications: New docusate sodium 100 mg Capsule 100 mg PO BID 14 Days Qty: 28 RF: 0 acetaminophen 325 mg Tablet 650 mg PO Q6H PRN (Reason: Pain, Mild (Pain Scale 1-3)) 30 Days Qty: 240 RF: 3 diltiazem HCl [Cardizem CD] 240 mg capsule,extended release 24hr 240 mg PO DAILY 30 Days Qty: 30 RF: 0 Continued atorvastatin 80 mg tablet 1 tab PO BEDTIME RF: 0 Eliquis 5 mg tablet 1 tab PO BID RF: 0 fluconazole 150 mg tablet 150 mg PO QWEEK RF: 0 omeprazole 20 mg capsule,delayed release(DR/EC) 20 mg PO DAILY PRN (Reason: Gastric Reflux) RF: 0 Discontinued diltiazem HCl 120 mg capsule,extended release 24hr 1 cap PO DAILY RF: 0 Lovenox RF: 0 Discharge Orders: Discharge Order (Routine); Ordered 07/09/21 Ordered By: Nathaly Herring Diet: regular diet Activity on Discharge: Use cane or walker Stand Alone Forms: Patient Portal Discharge page Care Plan Goals: Restore function of joint Health Concerns: none Plan of Treatment: Physical Therapy Pain management DVT prophylaxis Assessment: Physical Therapy for Total hip arthroplasty: posterior precautions, gait training, ROM, strength Limit stair climbing No showering, no tub bath-keep dressing clean, dry and intact No driving x6 weeks Resume Eliquis Follow up with [facility] [place] 2 weeks Followup with machine adjuster helper for Cristel Ward Discharge Date/Time: 07/09/21 17:39
[2021-07-07] MEDS: Docusate Sodium 100 MG CAPSULE PO ×2 (08:44→20:40)
[2021-07-07] MEDS: dilTIAZem HCL CD 120 MG CAP.ER.DEG PO (08:44)
[2021-07-07] MEDS: 0.9 % Sodium Chloride Flush 3 ML SYRINGE IVFLUSH ×2 (08:44→23:45)
--- NOTE | 2021-07-07 09:15 | P.F2F_ITS ---
Service Date Service Date: 07/07/21 Encounter Date of encounter: 07/07/21 Reasons for Services Reason for physical therapy: home safety and mobility, therapeutic exercises, restore joint function, gait/transfer training, ADL training and energy conservation Reason for occupational therapy: home safety and mobility, therapeutic exercises, restore joint function, gait/transfer training, ADL training and energy conservation Overseeing Care: Robinson Gomez Homebound: Leaving the home is medically contraindicated at this time without the asist of a device and/or another person due th the listed conditions above and below. Reason homebound: unsteady gait / fall risk, pain with ambulation, poor balance / fall risk and unable to drive Homebound supporting statement: Pt. is considered home bound due to recent surgery. Unable to drive, poor balance, poor gait mechanics. Certification: Based on the above findings, I certify that this patient is confined to the home and needs intermittent long-term care, physical therapy and/or speech therapy, or continues to need occupational therapy. The patient is under my care, and I have initiated the establishment of the plan of care. The patient will be followed by a physician who will periodically review the plan of care.
--- NOTE | 2021-07-07 09:29 | MHC.CM.PN ---
Addendum entered by Laly Ponce 07/07/21 11:34: dc on hold per ortho Original Note: PATIENT IS DISCHARGED HOME TODAY WITH [facility]. PATIENT AGREES TO THIS PLAN. IMM 07/06 IN CHART. PATIENT STATES THAT SHE HAS ALREADY ARRANGED FOR TRANSPORT HOME. RN AWARE OF PLAN.
--- NOTE | 2021-07-07 10:46 | ECG_ITS ---
Test Reason : rapid heart rate Blood Pressure : / mmHG Vent. Rate : 149 BPM Atrial Rate : 149 BPM P-R Int : 104 ms QRS Dur : 162 ms QT Int : 302 ms P-R-T Axes : 000 -16 266 degrees QTc Int : 475 ms Sinus tachycardia with short LA Non-specific intra-ventricular conduction block Left ventricular hypertrophy with repolarization abnormality ( R in aVL , Terry product ) Inferior infarct , age undetermined ST depression in Anterolateral leads Abnormal ECG When compared with ECG of 23-APR-2019 14:02, LA interval has decreased Vent. rate has increased BY 89 BPM Questionable change in QRS duration Inferior infarct is now Present ST now depressed in Anterolateral leads Referred By: Kavya Marquis Electronically Signed By:ANATOLIY WILL
[2021-07-07] MEDS: Enoxaparin Sodium 40 MG/0.4 ML SYRINGE SUBCUT (12:28)
--- NOTE | 2021-07-07 12:28 | P.PNIM_ITS ---
Subjective Subjective Date of Service: 07/07/21 Interval History: Seen and examined this morning Seen in follow-up for medical consult Heart rate noted to be elevated. Patient denies chest pain, palpitations, shortness of breath Review of Systems Review of Systems: Yes all other systems are reviewed and are negative Constitutional Constitutional: Denies chills and Denies fever(s) Cardiovascular Cardiovascular: Denies chest pain Respiratory Respiratory: Denies cough Gastrointestinal Gastrointestinal: Denies abdominal pain Physical Exam Vital Signs: Vital Signs: Last Vital Signs Temp 99.1 F 07/07/21 12:00 Pulse 117 H 07/07/21 12:00 Resp 18 07/07/21 12:00 BP 144/91 H 07/07/21 12:00 Pulse Ox 92 07/07/21 12:00 Body Mass Index 35.4 Const: General: healthy appearing, comfortable, no acute distress, alert and awake Nutritional Appearance: well nourished Orientation/consciousness: patient oriented x3 HENMT: Head: Yes normocephalic and Yes atraumatic Eyes: Sclerae: sclerae normal Chest: Chest palpation & inspection: normal inspection of the chest Resp: Effort & Inspection: normal respiratory effort and no respiratory distress Auscultation: clear to auscultation bilaterally Cardio: Rate: tachycardic Rhythm: regular rhythm GI: Palpation (GI): Soft to palpation and nontender Neuro: General: patient oriented x3 Cranial nerves: Yes CN's II-XII intact bilaterally and Yes Bilaterally intact EOM present Objective Data Active Medications Acetaminophen (Acetaminophen 325 Mg Tablet) 650 mg PO Q6H PRN PRN Reason: Pain, Mild (Pain Scale 1-3) Last Admin: 07/06/21 19:33 Dose: 650 mg Documented by: JEWELS Atorvastatin Calcium (Atorvastatin Calcium 80 Mg Tablet) 80 mg PO BEDTIME [facility] Last Admin: 07/06/21 19:34 Dose: 80 mg Documented by: JEWELS Diltiazem HCl (Diltiazem Hcl Cd 120 Mg Cap.Er.Deg) 120 mg PO DAILY [facility]; Protocol Last Admin: 07/07/21 08:44 Dose: 120 mg Documented by: JAZMIN Docusate Sodium (Docusate Sodium 100 Mg Capsule) 100 mg PO BID [facility] Last Admin: 07/07/21 08:44 Dose: 100 mg Documented by: JAZMIN Enoxaparin Sodium (Enoxaparin Sodium 40 Mg/0.4 Ml Syringe) 40 mg SUBCUT Q24H [facility] Last Admin: 07/06/21 11:42 Dose: 40 mg Documented by: COTEMA Dextrose/Sodium Chloride (D5ns) 1,000 mls @ 80 mls/hr IVCONT .[id number] [facility] Last Admin: 07/07/21 04:10 Dose: 80 mls/hr Documented by: JEWELS Comments: down time Cefazolin Sodium/Dextrose (Ancef) 2 gm in 50 mls @ 100 mls/hr IV POSTOP JT Morphine Sulfate (Morphine Sulfate Immed Release 15 Mg Tablet) 15 mg PO Q4H PRN PRN Reason: Pain, Moderate (Pain Scale 4-6 Last Admin: 07/06/21 19:32 Dose: 15 mg Documented by: JEWELS Omeprazole (Omeprazole 20 Mg Capsule.Dr) 20 mg PO DAILY PRN PRN Reason: Gastric Reflux Last Admin: 07/06/21 16:59 Dose: 20 mg Documented by: COTEMA Ondansetron HCl (Ondansetron Hcl 4 Mg/2 Ml Vial) 4 mg IVPUSH Q8H PRN PRN Reason: Nausea and Vomiting Sodium Chloride (0.9 % Sodium Chloride Flush 3 Ml Syringe) 3 ml IVFLUSH QSHIFT [facility] Last Admin: 07/07/21 08:44 Dose: 3 ml Documented by: JAZMIN Labs CBC & Chem 7: 07/07/21 05:25 07/07/21 05:25 Labs: Laboratory Results - last 24 hr 07/07/21 07/07/21 05:25 05:25 MCV 93.6 MCH 31.0 MCHC 33.1 RDW 13.6 Plt Count 212 MPV 9.0 L Immature Gran % (Auto) 0.3 Neut % (Auto) 72.1 Lymph % (Auto) 14.9 L [place] % (Auto) 11.9 H Eos % (Auto) 0.6 Baso % (Auto) 0.2 Lymph # (Auto) 1.3 [place] # (Auto) 1.0 Eos # (Auto) 0.1 Baso # (Auto) 0.0 Abs Immat Gran (auto) 0.03 Absolute Neuts (auto) 6.2 Absolute Nucleated RBC 0.000 Nucleated RBC % (auto) 0.0 Anion Gap 8 L Estim Creat Clear Calc 109.7 Estimated GFR > 60 Fasting Glucose 126 H Calcium 7.9 L D Assessment and Plan (1) Paroxysmal atrial fibrillation: Status: Acute (2) Tachycardia: Status: Acute Assessment and Plan: This is a 71-year-old female with a history of paroxysmal atrial fibrillation on Eliquis, hyperlipidemia, acid reflux admitted for elective right total hip arthroplasty Tachycardia Patient asymptomatic History of AFib, will get EKG, check troponin Tele monitoring Continue diltiazem Follow HR closely Atrial fibrillation Continue diltiazem Consider resuming Eliquis, on Lovenox for now GERD Continue Prilosec POD #2 s/p R [place] Management per Orthopedic Service DVT prophylaxis-Lovenox Attending physician-Dr. Glover Quality Stroke Does the patient have a stroke diagnosis?: No VTE Prior VTE?: No VTE Risk Level:: Surgical - very high VTE Device Contraindication: Treatment Not Indicated VTE Drug Contraindication: N/A - Med Ordered
[2021-07-07] MEDS: dilTIAZem HCL 50 MG/10 ML VIAL 10 MG IVPUSH (13:05)
[2021-07-07 13:47] LABS: Troponin-I High Sensitivity 5.8 ng/L (<3.5-17.0)
--- NOTE | 2021-07-07 14:35 | MHC.CM.PN ---
[facility] MADE AWARE THAT PATIENT WILL REMAIN TONIGHT SECONDARY TO TACHYCARDIA. PATIENT IS ANXIOUS TO RETURN HOME AND HOPES THAT SHE WILL ON SUNDAY. PATIENT HAS TRANSPORT ARRANGED IF SO.
[2021-07-07] MEDS: dilTIAZem HCL 125 MG in 0.9 % Sodium Chloride 100 ML IVCONT (17:39)
[2021-07-07] MEDS: Omeprazole 20 MG CAPSULE.DR PO (19:07)
[2021-07-07] MEDS: Atorvastatin Calcium 80 MG TABLET PO (20:40)
[2021-07-07] MEDS: Metoprolol Tartrate 12.5 MG HALFTAB PO (23:08)
[2021-07-08] VITALS (10 sets, daily range): BP systolic 91–138; BP diastolic 49–60; PULSE 72–120; RESP 17–20; TEMP 36.5–37.2; O2SAT 93–97
[2021-07-08] MEDS: dilTIAZem HCL 125 MG in 0.9 % Sodium Chloride 100 ML 10 MG IVCONT ×2 (01:17→18:50)
[2021-07-08] MEDS: Dextrose 5 % and 0.9 % NaCl 1,000 ML 80 ML IVCONT (01:24)
[2021-07-08 06:06] LABS: MANUAL DIFF FLAG NO
[2021-07-08 06:23] LABS: Basophils Percent Auto 0.4 % (0-2); Eosinophils Absolute Auto 0.1 X10*3/uL (0.0-0.4); Eosinophils Percent Auto 0.8 % (0-4); Hematocrit 31.3 % (37-47); Hemoglobin 10.1 g/dl (12.0-16.0); Imm Gran Abs Auto 0.02 X10*3/uL (0.00-0.03); Imm Gran Pct Auto 0.2 % (0.0-0.4); Lymphocytes Absolute Auto 1.6 X10*3/uL (1.2-4.9); Lymphocytes Percent Auto 19.5 % (20-40); Mean Corpuscular HGB Conc 32.3 g/dl (31.0-35.0); Mean Corpuscular Volume 92.9 fL (80-98); Mean Platelet Volume 9.3 fL (9.4-12.3); Monocytes Absolute Auto 0.7 X10*3/uL (0.1-1.2); Monocytes Percent Auto 7.9 % (2-11); Neutrophils Percent Auto 71.2 % (45-73); Platelet Count 234 X10*3/uL (160-400); Red Blood Count 3.37 X10*6/uL (4.20-5.50); Red Cell Distribution Width 13.5 % (11.0-16.0); White Blood Count 8.4 X10*3/uL (4.8-10.8)
[2021-07-08 06:42] LABS: Anion Gap 11 (12-20); Blood Urea Nitrogen 6 mg/dL (9-16); Carbon Dioxide 24 mmol/L (22-29); Chloride 105 mmol/L (96-108); Creatinine Clr Calc Pharmacy 106.2; Estimated Glomerular Filt Rate > 60; Glucose Fasting 154 mg/dL (60-99); Potassium 3.6 mmol/L (3.3-5.1); Sodium 136 mmol/L (135-145)
[2021-07-08] MEDS: Metoprolol Tartrate 12.5 MG HALFTAB PO (10:10)
[2021-07-08] MEDS: Docusate Sodium 100 MG CAPSULE PO (10:10)
--- NOTE | 2021-07-08 10:12 | HO.PM.IMPN ---
Subjective Subjective Date of Service: 07/08/21 Interval History: seen and examined this morning follow up for a flutter Patient denies any chest pain, palpitations, shortness of breath, dizziness heart rate variable overnight despite Cardizem drip Eating well, voiding without difficulty, pain under adequate control Review of Systems Review of Systems: Yes all other systems are reviewed and are negative Constitutional Constitutional: Denies chills and Denies fever(s) Cardiovascular Cardiovascular: Denies chest pain Respiratory Respiratory: Denies cough Gastrointestinal Gastrointestinal: Denies abdominal pain Physical Exam Vital Signs: Vital Signs: Last Vital Signs Temp 97.7 F 07/08/21 08:00 Pulse 79 07/08/21 08:11 Resp 18 07/08/21 08:00 BP 102/55 L 07/08/21 08:11 Pulse Ox 94 07/08/21 08:11 Body Mass Index 35.4 Const: Nutritional Appearance: well nourished Orientation/consciousness: patient oriented x3 HENMT: Head: Yes normocephalic and Yes atraumatic Eyes: Sclerae: sclerae normal Resp: Effort & Inspection: normal respiratory effort and no respiratory distress Cardio: Heart sounds: S1 normal heart sound present and S2 normal heart sound present GI: Palpation (GI): Soft to palpation and nontender Neuro: General: patient oriented x3 Cranial nerves: Yes CN's II-XII intact bilaterally and Yes Bilaterally intact EOM present Extrem: Other: no leg edema Objective Data Active Medications Acetaminophen (Acetaminophen 325 Mg Tablet) 650 mg PO Q6H PRN PRN Reason: Pain, Mild (Pain Scale 1-3) Last Admin: 07/06/21 19:33 Dose: 650 mg Documented by: JEWELS Apixaban (Apixaban 5 Mg Tablet) 5 mg PO BID REPLACED BY [facility] Atorvastatin Calcium (Atorvastatin Calcium 80 Mg Tablet) 80 mg PO BEDTIME REPLACED BY [facility] Last Admin: 07/07/21 20:40 Dose: 80 mg Documented by: GLENN Docusate Sodium (Docusate Sodium 100 Mg Capsule) 100 mg PO BID REPLACED BY [facility] Last Admin: 07/07/21 20:40 Dose: 100 mg Documented by: GLENN Dextrose/Sodium Chloride (D5ns) 1,000 mls @ 80 mls/hr IVCONT .[id number] REPLACED BY [facility] Last Admin: 07/08/21 01:24 Dose: 80 mls/hr Documented by: ELAINE Cefazolin Sodium/Dextrose (Ancef) 2 gm in 50 mls @ 100 mls/hr IV POSTOP JT Diltiazem HCl 125 mg/ Sodium (Chloride) 125 mls @ 0 mls/hr IVCONT .Q0M REPLACED BY [facility]; Protocol Last Titration: 07/08/21 02:03 Dose: 5 mg/hr, 5 mls/hr Documented by: ELAINE Metoprolol Tartrate (Metoprolol Tartrate 12.5 Mg Halftab) 12.5 mg PO BID REPLACED BY [facility]; Protocol Last Admin: 07/07/21 23:08 Dose: 12.5 mg Documented by: GLENN Morphine Sulfate (Morphine Sulfate Immed Release 15 Mg Tablet) 15 mg PO Q4H PRN PRN Reason: Pain, Moderate (Pain Scale 4-6 Last Admin: 07/06/21 19:32 Dose: 15 mg Documented by: JEWELS Omeprazole (Omeprazole 20 Mg Capsule.Dr) 20 mg PO DAILY PRN PRN Reason: Gastric Reflux Last Admin: 07/07/21 19:07 Dose: 20 mg Documented by: GLENN Ondansetron HCl (Ondansetron Hcl 4 Mg/2 Ml Vial) 4 mg IVPUSH Q8H PRN PRN Reason: Nausea and Vomiting Sodium Chloride (0.9 % Sodium Chloride Flush 3 Ml Syringe) 3 ml IVFLUSH QSHIFT REPLACED BY [facility] Last Admin: 07/08/21 10:07 Dose: Not Given Documented by: ISHA Non-Admin Reason: IV Running Labs CBC & Chem 7: 07/08/21 05:51 07/08/21 05:51 Labs: Laboratory Results - last 24 hr 07/07/21 07/08/21 07/08/21 13:15 05:51 05:51 MCV 92.9 MCH 30.0 MCHC 32.3 RDW 13.5 Plt Count 234 MPV 9.3 L Immature Gran % (Auto) 0.2 Neut % (Auto) 71.2 Lymph % (Auto) 19.[address] [place] % (Auto) 7.9 Eos % (Auto) 0.8 Baso % (Auto) 0.4 Lymph # (Auto) 1.6 [place] # (Auto) 0.7 Eos # (Auto) 0.1 Baso # (Auto) 0.0 Abs Immat Gran (auto) 0.02 Absolute Neuts (auto) 6.0 Absolute Nucleated RBC 0.000 Nucleated RBC % (auto) 0.0 Anion Gap 11 L Estim Creat Clear Calc 106.2 Estimated GFR > 60 Fasting Glucose 154 H Calcium 8.0 L Troponin I High Sens 5.8 Assessment and Plan (1) Atrial flutter: Status: Acute Assessment and Plan: This is a 71-year-old female with a history of paroxysmal atrial fibrillation on Eliquis, hyperlipidemia, acid reflux admitted for elective right total hip arthroplasty Aflutter dx with afib about 1 month ago HR variable despite cardizem drip Patient asymptomatic seen by Cardiology, plan to start oral Cardizem and titrate off Cardizem drip Tele monitoring Eliquis resumed GERD Continue Prilosec POD #3 s/p R [place] Management per Orthopedic Service DVT prophylaxis-[place] Attending physician-Dr. Glover Quality Stroke Does the patient have a stroke diagnosis?: No VTE Prior VTE?: No VTE Risk Level:: Surgical - very high VTE Device Contraindication: Treatment Not Indicated VTE Drug Contraindication: N/A - Med Ordered
--- NOTE | 2021-07-08 10:16 | PM.CNCAR ---
History of Present Illness History of Present Illness Date of Service: 07/08/21 Requesting physician: Kavya Marquis Consult reason: other (Atrial flutter) Chief complaint: RT CHAPINCITO Narrative: I was requested to see the patient for postoperative tachycardia. Tachycardia happens to be atrial flutter with rapid ventricular response initially, subsequent EKG shows more controlled ventricular response. This was on IV Cardizem therapy. Patient 71-year-old female came as an outpatient for total hip replacement for arthritis. Patient underwent surgery on 07/06/2021 under general anesthesia. No immediate preoperative EKGs available and unsure whether patient presented in atrial flutter of was in sinus rhythm. EKG from [facility] from 06/29 shows normal sinus rhythm. Postoperative was noted to have tachycardia. EKG shows atrial flutter with 2 is to 1 conduction with rapid ventricular response. Heart rate during the surgery is within normal limits but reported EKG showing AF not sure if she was in atrial fibrillation during surgery. Patient has no symptoms. Denies any palpitations. Denies shortness of breath, orthopnea, PND. Heart rate was well controlled on 10 mg of Cardizem which was then overnight reduced to 5 mg for unclear reasons. This morning the heart rate is elevated at 110 beats per minute again. Denies lightheadedness, syncope. Her Eliquis was restarted. She was incidentally noted to have atrial fibrillation early June. In April she had suffered a TIA. Her echocardiogram done at [facility] in April showed normal LV ejection fraction with [id number] tricuspid regurgitation and mildly elevated right ventricular systolic pressure. Review of Systems Review of Systems: Yes all other systems are reviewed and are negative Constitutional: Constitutional: Reports no additional constitutional complaints Eyes: Eyes: Reports no additional eye complaints ENT: Reports system reviewed and no additional complaints, except as documented Cardiovascular: Cardiovascular: Reports no additional cardiovascular complaints Respiratory: Respiratory: Reports no additional respiratory complaints Gastrointestinal: Gastrointestinal: Reports no additional gastrointestinal complaints Genitourinary: Genitourinary: Reports no additional female genitourinary complaints Musculoskeletal: Musculoskeletal: Reports no additional musculoskeletal complaints Integumentary/Breasts: Skin/Breast: Reports system reviewed and no additional complaints, except as docu Neurologic: Reports system reviewed and no additional complaints, except as documented Psychiatric: Psychiatric: Reports no additional psychiatric complaints Endocrine: Endocrine: Reports no additional endocrine complaints Hematologic/Lymphatic: Hematologic/Lymphatic: Reports no additional hematologic/lymphatic complaints Allergic/Immunologic: Allergic/Immunologic: Reports no additional allergic/immunologic complaints [facility] Past Medical History Medical History A-fib Acid reflux Arthritis GERD (gastroesophageal reflux disease) History of transient ischemic attack Hyperlipidemia Paroxysmal atrial fibrillation Surgical History Surgical History History of back surgery History of hip surgery History of knee surgery Hx of bilateral cataract extraction Hx of colonoscopy S/P total hip arthroplasty Social History Social History Are you a primary clinical manager home care to a significant other at home: No Do you presently have visiting nurse or other home services: No Alcohol intake: never Patient Tobacco Use Status: Former Tobacco user Quit Date: 2009 Tobacco use type: Cigarette Years Smoked: 50 Use of substances other than those prescribed or required for medical reasons: No Currently Displaying Signs/Symptoms of Drug Intoxication Withdrawal: No Have you been hit, kicked, punched, or otherwise hurt by someone within the past year? If so, by whom?: No Spiritual Healthcare Practices: none Mandaen Healthcare Practices: none Cultural Healthcare Practices: none Are you DNR?: No Advance Directives: Yes Advance Directives Information Provided: Yes Advance Directives on File: Yes Advance Directives Date on File: 06/28/21 Do you have thoughts of harming others: None Do you have a plan to hurt others: No Plan Recently lost weight without trying: No Current occupational status: retired Current occupation: right handed Meds Allergies Allergy/AdvReac Type Severity Reaction Status Date / Time ibuprofen Allergy Intermediate Insomnia, Verified 06/30/21 12:34 leg tremors oxycodone [OXYCODONE] Allergy Intermediate SOB,PALPATATIONS, Verified 06/30/21 12:34 itching Active Medications: Current Medications Acetaminophen (Acetaminophen 325 Mg Tablet) 650 mg PO Q6H PRN PRN Reason: Pain, Mild (Pain Scale 1-3) Last Admin: 07/06/21 19:33 Dose: 650 mg Documented by: Apixaban (Apixaban 5 Mg Tablet) 5 mg PO BID JT Atorvastatin Calcium (Atorvastatin Calcium 80 Mg Tablet) 80 mg PO BEDTIME JT Last Admin: 07/07/21 20:40 Dose: 80 mg Documented by: Docusate Sodium (Docusate Sodium 100 Mg Capsule) 100 mg PO BID [facility] Last Admin: 07/08/21 10:10 Dose: 100 mg Documented by: Dextrose/Sodium Chloride (D5ns) 1,000 mls @ 80 mls/hr IVCONT .[id number] [facility] Last Admin: 07/08/21 01:24 Dose: 80 mls/hr Documented by: Cefazolin Sodium/Dextrose (Ancef) 2 gm in 50 mls @ 100 mls/hr IV POSTOP JT Diltiazem HCl 125 mg/ Sodium (Chloride) 125 mls @ 0 mls/hr IVCONT .Q0M [facility]; Protocol Last Titration: 07/08/21 02:03 Dose: 5 mg/hr, 5 mls/hr Documented by: Metoprolol Tartrate (Metoprolol Tartrate 12.5 Mg Halftab) 12.5 mg PO BID [facility]; Protocol Last Admin: 07/08/21 10:10 Dose: 12.5 mg Documented by: Morphine Sulfate (Morphine Sulfate Immed Release 15 Mg Tablet) 15 mg PO Q4H PRN PRN Reason: Pain, Moderate (Pain Scale 4-6 Last Admin: 07/06/21 19:32 Dose: 15 mg Documented by: Omeprazole (Omeprazole 20 Mg Capsule.Dr) 20 mg PO DAILY PRN PRN Reason: Gastric Reflux Last Admin: 07/07/21 19:07 Dose: 20 mg Documented by: Ondansetron HCl (Ondansetron Hcl 4 Mg/2 Ml Vial) 4 mg IVPUSH Q8H PRN PRN Reason: Nausea and Vomiting Sodium Chloride (0.9 % Sodium Chloride Flush 3 Ml Syringe) 3 ml IVFLUSH QSHIFT [facility] Last Admin: 07/08/21 10:07 Dose: Not Given Documented by: Home Medications Medication Instructions Recorded Confirmed Last Taken Type fluconazole 150 mg tablet 150 mg PO QWEEK 04/04/21 06/28/21 Unknown History omeprazole 20 mg capsule,delayed 20 mg PO DAILY PRN 04/04/21 06/28/21 07/05/21 History release apixaban 5 mg tablet (Eliquis) 1 tab PO BID 06/28/21 06/28/21 06/30/21 History atorvastatin 80 mg tablet 1 tab PO BEDTIME 06/28/21 06/28/21 Unknown History diltiazem HCl 120 mg 1 cap PO DAILY 06/28/21 06/28/21 07/05/21 History capsule,extended release 24 hr Physical Exam Vital Signs: Vital Signs: Last Vital Signs Temp 97.7 F 07/08/21 08:00 Pulse 79 07/08/21 08:11 Resp 18 07/08/21 08:00 BP 102/55 L 07/08/21 08:11 Pulse Ox 94 07/08/21 08:11 Body Mass Index 35.4 Const: General: cooperative, comfortable, no acute distress, alert and awake Nutritional Appearance: obese Orientation/consciousness: patient oriented x3 HENMT: Head: Yes normocephalic and Yes atraumatic Neck: Neck: Yes trachea midline, Yes supple and Yes no JVD Resp: Effort & Inspection: normal respiratory effort Auscultation: no rales and no wheezes Cardio: Jugular venous distension: no JVD Palpation: normal PMI Rate: tachycardic Rhythm: abnormal rhythm irregularly irregular Heart sounds: S1 normal heart sound present, S2 normal heart sound present, no click, no gallops and no murmurs GI: Auscultation: normal bowel sounds Skin: General skin exam: no rashes or lesions noted Neuro: General: patient oriented x3 and no focal motor deficits Psych: Appearance: grossly normal Results Labs and Meds Result diagrams: 07/08/21 05:51 07/08/21 05:51 Lab results: Laboratory Results - last 24 hr 07/07/21 07/08/21 07/08/21 13:15 05:51 05:51 WBC 8.4 RBC 3.37 L Hgb 10.1 L Hct 31.3 L MCV 92.9 MCH 30.0 MCHC 32.3 RDW 13.5 Plt Count 234 MPV 9.3 L Immature Gran % (Auto) 0.2 Neut % (Auto) 71.2 Lymph % (Auto) 19.5 L [place] % (Auto) 7.9 Eos % (Auto) 0.8 Baso % (Auto) 0.4 Lymph # (Auto) 1.6 [place] # (Auto) 0.7 Eos # (Auto) 0.1 Baso # (Auto) 0.0 Abs Immat Gran (auto) 0.02 Absolute Neuts (auto) 6.0 Absolute Nucleated RBC 0.000 Nucleated RBC % (auto) 0.0 Sodium 136 Potassium 3.6 Chloride 105 Carbon Dioxide 24 Anion Gap 11 L BUN 6 L Creatinine 0.62 Estim Creat Clear Calc 106.2 Estimated GFR > 60 Fasting Glucose 154 H Calcium 8.0 L Troponin I High Sens 5.8 EKG number 1 shows atrial flutter with 2 is to 1 av conduction. Assessment and Plan (1) Atrial flutter: Status: Acute Persistent atrial flutter without any symptoms or signs of cardiac decompensation. Unclear as to the duration but definitely postoperative. Rate is not adequately controlled. Would start on oral Cardizem 60 mg Q 6 hours and then after an hour taper and discontinue Cardizem drip. Hopefully with that she will be controlled. If arteries control by tomorrow can be discharged home with follow-up with Cardiology at [facility] in 7-10 days. This is to decide further course of action in regards to rate control versus rhythm control. Patient is on Eliquis 5 mg b.i.d.. She mention to me that this drug is very expensive for her. 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 Continue pain control. Continue ambulation as tolerated. Will follow the patient tomorrow. Procedures Date of Service Date of Service: 07/08/21
--- NOTE | 2021-07-08 10:55 | P.PNOP_ITS ---
Subjective Subjective Date of Service: 07/08/21 Interval history: POD 3 s/p RT CHAPINCITO No overnight events she is on heart rate monitor denies cp no concerns. Physical Exam Vital Signs: Vital Signs: Last Vital Signs Temp 97.7 F 07/08/21 08:00 Pulse 79 07/08/21 08:11 Resp 18 07/08/21 08:00 BP 102/55 L 07/08/21 08:11 Pulse Ox 94 07/08/21 08:11 Body Mass Index 35.4 Const: General: cooperative, healthy appearing and no acute distress Resp: Effort & Inspection: normal respiratory effort and able to speak in complete sentences Cardio: Rate: regular rate Peripheral pulses: Peripheral pulses 2+ throughout GI: Palpation (GI): Soft to palpation Skin: General skin exam: no rashes or lesions noted Extrem: Other: bandage No erythema or effusion. Calf supple nontender. Neurovascularly intact. Procedures Date of Service Date of Service: 07/08/21 Progress Note: A&P Assessment and plan (1) Primary osteoarthritis of right hip: Status: Acute Assessment and Plan: * Continue pain mgmnt * resume eliquis * PT/OT for RT CHAPINCITO * Dispo planning-Pending clearance from cardiology Fall Risk Details Current Medications: Current Medications Acetaminophen (Acetaminophen 325 Mg Tablet) 650 mg PO Q6H PRN PRN Reason: Pain, Mild (Pain Scale 1-3) Last Admin: 07/06/21 19:33 Dose: 650 mg Documented by: Apixaban (Apixaban 5 Mg Tablet) 5 mg PO BID [facility] Atorvastatin Calcium (Atorvastatin Calcium 80 Mg Tablet) 80 mg PO BEDTIME [facility] Last Admin: 07/07/21 20:40 Dose: 80 mg Documented by: Diltiazem HCl (Diltiazem Hcl 60 Mg Tablet) 60 mg PO Q6H JT; Protocol Docusate Sodium (Docusate Sodium 100 Mg Capsule) 100 mg PO BID JT Last Admin: 07/08/21 10:10 Dose: 100 mg Documented by: Cefazolin Sodium/Dextrose (Ancef) 2 gm in 50 mls @ 100 mls/hr IV POSTOP JT Diltiazem HCl 125 mg/ Sodium (Chloride) 125 mls @ 0 mls/hr IVCONT .Q0M JT; Protocol Last Titration: 07/08/21 02:03 Dose: 5 mg/hr, 5 mls/hr Documented by: Morphine Sulfate (Morphine Sulfate Immed Release 15 Mg Tablet) 15 mg PO Q4H PRN PRN Reason: Pain, Moderate (Pain Scale 4-6 Last Admin: 07/06/21 19:32 Dose: 15 mg Documented by: Omeprazole (Omeprazole 20 Mg Capsule.Dr) 20 mg PO DAILY PRN PRN Reason: Gastric Reflux Last Admin: 07/07/21 19:07 Dose: 20 mg Documented by: Ondansetron HCl (Ondansetron Hcl 4 Mg/2 Ml Vial) 4 mg IVPUSH Q8H PRN PRN Reason: Nausea and Vomiting Sodium Chloride (0.9 % Sodium Chloride Flush 3 Ml Syringe) 3 ml IVFLUSH QSHIFT [facility] Last Admin: 07/08/21 10:07 Dose: Not Given Documented by: Time Spent With Patient Time: Total time spent is greater than 50% in coordination of care (as documented) at patient's floor/unit and/or counseling patient: Time with patient: less than 15 minutes Quality Stroke Does the patient have a stroke diagnosis?: No VTE Prior VTE?: No VTE Risk Level:: Surgical - very high VTE Device Contraindication: Treatment Not Indicated VTE Drug Contraindication: N/A - Med Ordered
[2021-07-08] MEDS: dilTIAZem HCL 60 MG TABLET PO ×2 (11:10→16:27)
[2021-07-08] MEDS: Apixaban 5 MG TABLET PO ×2 (11:11→20:02)
--- NOTE | 2021-07-08 12:43 | MHC.CM.PN ---
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 CM WILL FOLLOW-UP W/APPLICATION ONCE RECEIVED.
--- NOTE | 2021-07-08 13:10 | PC.NURSE ---
1245 HR elevated to 135-140 Pt reports no S/S. skin W@D BP stable. was in bed talking on phone. reported by [facility] [place] be in [place] Fl[place]. Ortho ALYSHA Jain and hospitalist, Kavya MONTELONGO aware. Will be transferred [place] [facility]
--- NOTE | 2021-07-08 13:26 | MHC.CM.PN ---
Addendum entered by Monica Das RN 07/08/21 14:23: CM CONTACTED PT'S [employer] WHO REPORTED PT WILL NEED TO GO THROUGH HER OUTSIDE PROVIDER TO SIGN FINANCIAL ASSISTANCE FORM, PT IS AWARE AND HAS FORMS AT BEDSIDE. Original Note: PT IS TRANSFERRING TO [facility] [place], PLEASE HAVE [employer] SIGN ELIQUIS SCRIPT ON CHART TO FAX TO [facility] SO THEY CAN COVER COST, PT HAS PAPERWORK W/FAX NUMBER TO FAX APPLICATION BACK ONCE FILLED OUT BY CARDIOLGIST.
[2021-07-08] MEDS: 0.9 % Sodium Chloride Flush 3 ML SYRINGE IVFLUSH ×2 (16:28→20:02)
[2021-07-08] MEDS: Atorvastatin Calcium 80 MG TABLET PO (20:01)
[2021-07-09] VITALS (9 sets, daily range): BP systolic 106–168; BP diastolic 58–87; PULSE 19–112; RESP 16–20; TEMP 36–37.6; O2SAT 94–98
[2021-07-09] MEDS: dilTIAZem HCL 125 MG in 0.9 % Sodium Chloride 100 ML 10 MG IVCONT (06:08)
[2021-07-09 07:29] LABS: MANUAL DIFF FLAG NO
[2021-07-09 07:33] LABS: Basophils Percent Auto 0.4 % (0-2); Eosinophils Absolute Auto 0.2 X10*3/uL (0.0-0.4); Eosinophils Percent Auto 2.4 % (0-4); Hematocrit 29.7 % (37-47); Hemoglobin 9.8 g/dl (12.0-16.0); Imm Gran Abs Auto 0.03 X10*3/uL (0.00-0.03); Imm Gran Pct Auto 0.4 % (0.0-0.4); Lymphocytes Absolute Auto 1.4 X10*3/uL (1.2-4.9); Mean Corpuscular Hemoglobin 30.5 pg (27.0-33.0); Mean Corpuscular Volume 92.5 fL (80-98); Mean Platelet Volume 9.3 fL (9.4-12.3); Monocytes Absolute Auto 0.8 X10*3/uL (0.1-1.2); Monocytes Percent Auto 9.9 % (2-11); Neutrophils Absolute Auto 5.4 X10*3/uL (2.0-8.3); Neutrophils Percent Auto 68.9 % (45-73); Platelet Count 252 X10*3/uL (160-400); Red Blood Count 3.21 X10*6/uL (4.20-5.50); Red Cell Distribution Width 13.2 % (11.0-16.0); White Blood Count 7.9 X10*3/uL (4.8-10.8)
[2021-07-09 07:47] LABS: Anion Gap 12 (12-20); Blood Urea Nitrogen 7 mg/dL (9-16); Carbon Dioxide 24 mmol/L (22-29); Chloride 105 mmol/L (96-108); Creatinine Clr Calc Pharmacy 115.5; Estimated Glomerular Filt Rate > 60; Glucose Fasting 121 mg/dL (60-99); Potassium 3.7 mmol/L (3.3-5.1); Sodium 137 mmol/L (135-145)
[2021-07-09] MEDS: Apixaban 5 MG TABLET PO (08:59)
[2021-07-09] MEDS: dilTIAZem HCL 60 MG TABLET PO (08:59)
[2021-07-09] MEDS: Docusate Sodium 100 MG CAPSULE PO (09:00)
[2021-07-09] MEDS: 0.9 % Sodium Chloride Flush 3 ML SYRINGE IVFLUSH (09:00)
--- NOTE | 2021-07-09 10:07 | PM.PNORT ---
Subjective Subjective Date of Service: 07/09/21 Interval history: POD4 s/p RTHA. Patient is resting comfortably in bed. Overnight the patient remains in A. Flutter with a HR in the high 90's-103. Her pain is well managed. No additional complaints. Physical Exam Vital Signs: Vital Signs: Last Vital Signs Temp 96.8 F 07/09/21 07:07 Pulse 98 07/09/21 08:59 Resp 20 07/09/21 07:07 BP 106/58 L 07/09/21 08:59 Pulse Ox 95 07/09/21 07:51 Body Mass Index 35.4 Const: General: cooperative, healthy appearing and no acute distress Resp: Effort & Inspection: normal respiratory effort and able to speak in complete sentences Cardio: Rate: regular rate Peripheral pulses: Peripheral pulses 2+ throughout GI: Palpation (GI): Soft to palpation Skin: Lesions: no lesions Rashes: no rashes Extrem: Other: Right hip Aquacel is clean, dry, and intact. No erythema or drainage. Patient is able to plantarflex and dorsiflex. Sensation intact. Pedal pulse intact. Procedures Date of Service Date of Service: 07/09/21 Progress Note: A&P Assessment and plan (1) Atrial flutter: Status: Acute Assessment and Plan: Continue pain mgmnt Continue Eliquis Continue PT/OT for RT CHAPINCITO Contninue cardiology recommendations of tele monitoring with mateo Dispo planning-Pending PT eval, pain mgmnt (2) Status post total hip replacement, right: Status: Acute Fall Risk Details Current Medications: Current Medications Acetaminophen (Acetaminophen 325 Mg Tablet) 650 mg PO Q6H PRN PRN Reason: Pain, Mild (Pain Scale 1-3) Last Admin: 07/06/21 19:33 Dose: 650 mg Documented by: Apixaban (Apixaban 5 Mg Tablet) 5 mg PO BID [facility] Last Admin: 07/09/21 08:59 Dose: 5 mg Documented by: Atorvastatin Calcium (Atorvastatin Calcium 80 Mg Tablet) 80 mg PO BEDTIME [facility] Last Admin: 07/08/21 20:01 Dose: 80 mg Documented by: Diltiazem HCl (Diltiazem Hcl 60 Mg Tablet) 60 mg PO QID [facility]; Protocol Last Admin: 07/09/21 08:59 Dose: 60 mg Documented by: Docusate Sodium (Docusate Sodium 100 Mg Capsule) 100 mg PO BID [facility] Last Admin: 07/09/21 09:00 Dose: 100 mg Documented by: Cefazolin Sodium/Dextrose (Ancef) 2 gm in 50 mls @ 100 mls/hr IV POSTOP JT Diltiazem HCl 125 mg/ Sodium (Chloride) 125 mls @ 0 mls/hr IVCONT .Q0M [facility]; Protocol Last Titration: 07/09/21 09:37 Dose: 7 mg/hr, 7 mls/hr Documented by: Morphine Sulfate (Morphine Sulfate Immed Release 15 Mg Tablet) 15 mg PO Q4H PRN PRN Reason: Pain, Moderate (Pain Scale 4-6 Last Admin: 07/06/21 19:32 Dose: 15 mg Documented by: Omeprazole (Omeprazole 20 Mg Capsule.Dr) 20 mg PO DAILY PRN PRN Reason: Gastric Reflux Last Admin: 07/07/21 19:07 Dose: 20 mg Documented by: Ondansetron HCl (Ondansetron Hcl 4 Mg/2 Ml Vial) 4 mg IVPUSH Q8H PRN PRN Reason: Nausea and Vomiting Sodium Chloride (0.9 % Sodium Chloride Flush 3 Ml Syringe) 3 ml IVFLUSH QSHIFT [facility] Last Admin: 07/09/21 09:00 Dose: 3 ml Documented by: Time Spent With Patient Time: Total time spent is greater than 50% in coordination of care (as documented) at patient's floor/unit and/or counseling patient: Time with patient: less than 15 minutes Quality Stroke Does the patient have a stroke diagnosis?: No VTE Prior VTE?: No VTE Risk Level:: Surgical - very high VTE Device Contraindication: Treatment Not Indicated VTE Drug Contraindication: N/A - Med Ordered
--- NOTE | 2021-07-09 11:50 | HO.PM.IMPN ---
Subjective Subjective Date of Service: 07/09/21 Interval History: seen and examined this morning Follow-up for AFib with RVR/a flutter Patient is very frustrated to still be in the hospital, wants to go home today Heart rate variable and intermittently up to the 140/150s Patient reports intermittent palpitations. She denies any chest pain, shortness of breath, dizziness Review of Systems Review of Systems: Yes all other systems are reviewed and are negative Constitutional Constitutional: Denies chills and Denies fever(s) Cardiovascular Cardiovascular: Denies chest pain, Denies leg edema, Denies lightheadedness, Reports palpitations, Denies dyspnea on exertion, Denies orthopnea and Denies paroxysmal nocturnal dyspnea Respiratory Respiratory: Denies cough and Denies dyspnea on exertion Gastrointestinal Gastrointestinal: Denies abdominal pain Endocrine Endocrine: Reports palpitations Physical Exam Vital Signs: Vital Signs: Last Vital Signs Temp 99.6 F 07/09/21 11:07 Pulse 19 L 07/09/21 11:07 Resp 20 07/09/21 11:07 BP 123/87 07/09/21 11:07 Pulse Ox 96 07/09/21 11:07 Body Mass Index 35.4 Const: General: healthy appearing, comfortable, no acute distress, alert and awake Nutritional Appearance: well nourished Orientation/consciousness: patient oriented x3 HENMT: Head: Yes normocephalic and Yes atraumatic Eyes: Sclerae: sclerae normal Chest: Chest palpation & inspection: normal inspection of the chest Resp: Effort & Inspection: normal respiratory effort and no respiratory distress Auscultation: clear to auscultation bilaterally Cardio: Rate: tachycardic Rhythm: abnormal rhythm irregularly irregular Heart sounds: S1 normal heart sound present and S2 normal heart sound present GI: Palpation (GI): Soft to palpation and nontender Neuro: General: patient oriented x3 Cranial nerves: Yes CN's II-XII intact bilaterally and Yes Bilaterally intact EOM present Extrem: Other: no leg edema Objective Data Active Medications Acetaminophen (Acetaminophen 325 Mg Tablet) 650 mg PO Q6H PRN PRN Reason: Pain, Mild (Pain Scale 1-3) Last Admin: 07/06/21 19:33 Dose: 650 mg Documented by: JEWELS Apixaban (Apixaban 5 Mg Tablet) 5 mg PO BID [facility] Last Admin: 07/09/21 08:59 Dose: 5 mg Documented by: IRMA Atorvastatin Calcium (Atorvastatin Calcium 80 Mg Tablet) 80 mg PO BEDTIME [facility] Last Admin: 07/08/21 20:01 Dose: 80 mg Documented by: JEMMA Diltiazem HCl (Diltiazem Hcl 60 Mg Tablet) 60 mg PO QID [facility]; Protocol Last Admin: 07/09/21 08:59 Dose: 60 mg Documented by: IRMA Docusate Sodium (Docusate Sodium 100 Mg Capsule) 100 mg PO BID [facility] Last Admin: 07/09/21 09:00 Dose: 100 mg Documented by: IRMA Cefazolin Sodium/Dextrose (Ancef) 2 gm in 50 mls @ 100 mls/hr IV POSTOP JT Diltiazem HCl 125 mg/ Sodium (Chloride) 125 mls @ 0 mls/hr IVCONT .Q0M [facility]; Protocol Last Titration: 07/09/21 11:17 Dose: 4 mg/hr, 4 mls/hr Documented by: IRMA Morphine Sulfate (Morphine Sulfate Immed Release 15 Mg Tablet) 15 mg PO Q4H PRN PRN Reason: Pain, Moderate (Pain Scale 4-6 Last Admin: 07/06/21 19:32 Dose: 15 mg Documented by: JEWELS Omeprazole (Omeprazole 20 Mg Capsule.) 20 mg PO DAILY PRN PRN Reason: Gastric Reflux Last Admin: 07/07/21 19:07 Dose: 20 mg Documented by: GLENN Ondansetron HCl (Ondansetron Hcl 4 Mg/2 Ml Vial) 4 mg IVPUSH Q8H PRN PRN Reason: Nausea and Vomiting Sodium Chloride (0.9 % Sodium Chloride Flush 3 Ml Syringe) 3 ml IVFLUSH QSHIFT [facility] Last Admin: 07/09/21 09:00 Dose: 3 ml Documented by: IRMA Labs CBC & Chem 7: 07/09/21 07:05 07/09/21 07:05 Labs: Laboratory Results - last 24 hr 07/09/21 07/09/21 07:05 07:05 MCV 92.5 MCH 30.5 MCHC 33.0 RDW 13.2 Plt Count 252 MPV 9.3 L Immature Gran % (Auto) 0.4 Neut % (Auto) 68.9 Lymph % (Auto) 18.0 L [place] % (Auto) 9.9 Eos % (Auto) 2.4 Baso % (Auto) 0.4 Lymph # (Auto) 1.4 [place] # (Auto) 0.8 Eos # (Auto) 0.2 Baso # (Auto) 0.0 Abs Immat Gran (auto) 0.03 Absolute Neuts (auto) 5.4 Absolute Nucleated RBC 0.000 Nucleated RBC % (auto) 0.0 Anion Gap 12 Estim Creat Clear Calc 115.5 Estimated GFR > 60 Fasting Glucose 121 H Calcium 8.0 L Assessment and Plan (1) Atrial flutter: Status: Acute Assessment and Plan: This is a 71-year-old female with a history of paroxysmal atrial fibrillation on Eliquis, hyperlipidemia, acid reflux admitted for elective right total hip arthroplasty Aflutter HR variable, sometimes up to 140s/150s. having some palpitations seen by Cardiology, continue po Cardizem and titrate off Cardizem drip if able Tele monitoring Continue AC with Eliquis GERD Continue Prilosec HLD continue statin POD #4 s/p R CHAPINCITO Management per Orthopedic Service DVT prophylaxis-Row[place] Attending physician-Dr. Toney Quality Stroke Does the patient have a stroke diagnosis?: No VTE Prior VTE?: No VTE Risk Level:: Surgical - very high VTE Device Contraindication: Treatment Not Indicated VTE Drug Contraindication: N/A - Med Ordered
[2021-07-09] MEDS: dilTIAZem HCL CD 240 MG CAP.ER.DEG PO (12:32)
--- NOTE | 2021-07-09 14:05 | P.PNCA_ITS ---
Subjective Subjective Date of Service: 07/09/21 Principal diagnosis: Atrial flutter Interval history: Patient has no cardiac symptoms. Denies palpitation, lightheadedness. Remains in atrial flutter, currently on low-dose Cardizem drip. Has received p.o. Cardizem. Very anxious to go home Review of Systems Constitutional: Reports no additional constitutional complaints Cardiovascular: Reports no additional cardiovascular complaints Respiratory: Reports no additional respiratory complaints Gastrointestinal: Reports no additional gastrointestinal complaints Musculoskeletal: Reports no additional musculoskeletal complaints Reports system reviewed and no additional complaints, except as documented Psychiatric: Reports no additional psychiatric complaints Physical Exam Vital Signs: Last Vital Signs Temp 99.6 F 07/09/21 11:07 Pulse 103 H 07/09/21 12:32 Resp 20 07/09/21 11:07 BP 123/87 07/09/21 12:32 Pulse Ox 96 07/09/21 11:07 Body Mass Index 35.4 Const General: cooperative, comfortable and anxious Nutritional Appearance: obese Orientation/consciousness: patient oriented x3 Neck Neck: Yes trachea midline, Yes supple and Yes no JVD Resp Effort & Inspection: normal respiratory effort Auscultation: clear to auscultation bilaterally Cardio Jugular venous distension: no JVD Rate: regular rate Rhythm: abnormal rhythm irregularly irregular Heart sounds: S1 normal heart sound present and S2 normal heart sound present Skin General skin exam: no rashes or lesions noted Neuro General: patient oriented x3 Extrem General: Yes no clubbing, cyanosis or edema Results Labs and Meds Result diagrams: 07/09/21 07:05 07/09/21 07:05 Lab results: Laboratory Results - last 24 hr 07/09/21 07/09/21 07:05 07:05 WBC 7.9 RBC 3.21 L Hgb 9.8 L Hct 29.7 L MCV 92.5 MCH 30.5 MCHC 33.0 RDW 13.2 Plt Count 252 MPV 9.3 L Immature Gran % (Auto) 0.4 Neut % (Auto) 68.9 Lymph % (Auto) 18.0 L [place] % (Auto) 9.9 Eos % (Auto) 2.4 Baso % (Auto) 0.4 Lymph # (Auto) 1.4 [place] # (Auto) 0.8 Eos # (Auto) 0.2 Baso # (Auto) 0.0 Abs Immat Gran (auto) 0.03 Absolute Neuts (auto) 5.4 Absolute Nucleated RBC 0.000 Nucleated RBC % (auto) 0.0 Sodium 137 Potassium 3.7 Chloride 105 Carbon Dioxide 24 Anion Gap 12 BUN 7 L Creatinine 0.57 Estim Creat Clear Calc 115.5 Estimated GFR > 60 Fasting Glucose 121 H Calcium 8.0 L Progress Note: A&P Assessment and plan (1) Atrial flutter: Status: Acute Assessment and Plan: Atrial flutter with borderline rate control, overall patient however completely asymptomatic. Extremely anxious to go home. Cardizem CD 240 mg has been given. After an hour taper and discontinue Cardizem drip. If heart rate remains reasonably controlled can be discharged home later today. Patient says that she will do a lot better at home. Follow-up outpatient Holter monitor with her own assistant paralegal. Continue Eliquis 5 mg b.i.d.. Blood pressure is optimized. Physical therapy as per Orthopedic and PT team. Will sign of the case. Fall Risk Details Current Medications: Current Medications Acetaminophen (Acetaminophen 325 Mg Tablet) 650 mg PO Q6H PRN PRN Reason: Pain, Mild (Pain Scale 1-3) Last Admin: 07/06/21 19:33 Dose: 650 mg Documented by: Apixaban (Apixaban 5 Mg Tablet) 5 mg PO BID [facility] Last Admin: 07/09/21 08:59 Dose: 5 mg Documented by: Atorvastatin Calcium (Atorvastatin Calcium 80 Mg Tablet) 80 mg PO BEDTIME JT Last Admin: 07/08/21 20:01 Dose: 80 mg Documented by: Diltiazem HCl (Diltiazem Hcl 60 Mg Tablet) 60 mg PO QID JT; Protocol Last Admin: 07/09/21 12:19 Dose: Not Given Documented by: Diltiazem HCl (Diltiazem Hcl Cd 240 Mg Cap.Er.Deg) 240 mg PO DAILY [facility]; Protocol Last Admin: 07/09/21 12:32 Dose: 240 mg Documented by: Docusate Sodium (Docusate Sodium 100 Mg Capsule) 100 mg PO BID [facility] Last Admin: 07/09/21 09:00 Dose: 100 mg Documented by: Cefazolin Sodium/Dextrose (Ancef) 2 gm in 50 mls @ 100 mls/hr IV POSTOP JT Diltiazem HCl 125 mg/ Sodium (Chloride) 125 mls @ 0 mls/hr IVCONT .Q0M [facility]; Protocol Last Titration: 07/09/21 11:17 Dose: 4 mg/hr, 4 mls/hr Documented by: Morphine Sulfate (Morphine Sulfate Immed Release 15 Mg Tablet) 15 mg PO Q4H PRN PRN Reason: Pain, Moderate (Pain Scale 4-6 Last Admin: 07/06/21 19:32 Dose: 15 mg Documented by: Omeprazole (Omeprazole 20 Mg Capsule.Dr) 20 mg PO DAILY PRN PRN Reason: Gastric Reflux Last Admin: 07/07/21 19:07 Dose: 20 mg Documented by: Ondansetron HCl (Ondansetron Hcl 4 Mg/2 Ml Vial) 4 mg IVPUSH Q8H PRN PRN Reason: Nausea and Vomiting Sodium Chloride (0.9 % Sodium Chloride Flush 3 Ml Syringe) [facility] Last Admin: 07/09/21 09:00 Dose: 3 ml Documented by: Time Spent With Patient Time: Total time spent is greater than 50% in coordination of care (as documented) at patient's floor/unit and/or counseling patient: Time with patient: 15 - 24 minutes Progress Note: Quality Stroke Does the patient have a stroke diagnosis?: No Procedures Date of Service Date of Service: 07/09/21
== END 2021-07-09 17:39 | disposition home health service (06) | DRG 470 ==
LOC: HO.SSSA 11:07 → HO.S3 15:22 → HO.IMC 07-08 13:40 → HO.S3 07-08 13:43 → HO.IMC 07-08 17:39
PROVIDERS: Family Medicine; Nurse Practitioner; Physician Assistant; Admitting Provider Orthopaedic Surgery; PCP Family Medicine; Visit Provider Orthopaedic Surgery
PROC: 0SR90JA Replacement of Right Hip Joint with Synthetic Substitute, Uncemented, Open Approach (ICD-10-PCS; CPT 27130; principal; 2021-07-05 12:30)
DX: M16.11 Unilateral primary osteoarthritis, right hip (principal); I48.92 Unspecified atrial flutter; Z20.822 Contact with and (suspected) exposure to COVID-19; I48.0 Paroxysmal atrial fibrillation; R00.0 Tachycardia, unspecified; K21.9 Gastro-esophageal reflux disease without esophagitis; E78.5 Hyperlipidemia, unspecified; Z87.891 Personal history of nicotine dependence; Z88.5 Allergy status to narcotic agent; Z88.6 Allergy status to analgesic agent; Z79.01 Long term (current) use of anticoagulants; Z79.899 Other long term (current) drug therapy
CPT/HCPCS: 36415; 72170; 80048; 84484; 85025; 85027; 86850; 86900; 86901; 87635; 87640; 87641; 88304; 88311; 93005; 97110; 97116; 97161; 97165; 97530; 97535; C1776; J0131; J0690; J1650; J3010

== ENCOUNTER → 2021-07-11 09:59 | Outpatient (BNVA) | payer MEDICARE, SELFPAY | PROVIDERS: PCP Family Medicine; Visit Provider Orthopaedic Surgery ==

== ENCOUNTER → 2021-07-21 13:44 | Outpatient (BNVA) | payer MEDICARE, SELFPAY | PROVIDERS: PCP Family Medicine; Visit Provider Physician Assistant | DX: Z51.81 Encounter for therapeutic drug level monitoring (principal); Z96.641 Presence of right artificial hip joint | CPT/HCPCS: 99212 ==

== ENCOUNTER → 2021-08-18 10:21 | Outpatient (BNVA) | payer MEDICARE, SELFPAY | PROVIDERS: PCP Family Medicine; Visit Provider Orthopaedic Surgery | DX: Z47.1 Aftercare following joint replacement surgery (principal); Z96.641 Presence of right artificial hip joint | CPT/HCPCS: 99212 ==

== ENCOUNTER 2022-06-29 11:09 | Outpatient (REF) | payer MEDICARE, SELFPAY ==
--- NOTE | ~2022-06-29 | XR_ITS ---
EXAMINATION: XR AP BILATERAL KNEE STANDING XR RIGHT KNEE CLINICAL INFORMATION: Pain right knee. COMPARISON: None TECHNIQUE: AP bilateral knee 1 view. Right knee 2 views. FINDINGS: Right: There is a right knee replacement in satisfactory position. There is lucency adjacent to the distal tibial component measuring 4 mm. This is increased from 2 mm on 2016 exam and is questionable for loosening. No evidence of lucency at the femoral or patellar components is seen. There may be cystic changes of the patella. No fracture or dislocation. No significant joint effusion. Standing AP view of the left knee demonstrates a left knee replacement. There is 2 mm lucency adjacent to the inferior left tibial component. This is similar to 2016 exam. XR/XR knee standing BI IMPRESSION: Right knee: Question loosening along the inferior right tibial prosthesis. Left knee: Stable appearance of left knee replacement.
--- NOTE | ~2022-06-29 | XR_ITS ---
EXAMINATION: XR AP BILATERAL KNEE STANDING XR RIGHT KNEE CLINICAL INFORMATION: Pain right knee. COMPARISON: None TECHNIQUE: AP bilateral knee 1 view. Right knee 2 views. FINDINGS: Right: There is a right knee replacement in satisfactory position. There is lucency adjacent to the distal tibial component measuring 4 mm. This is increased from 2 mm on 2016 exam and is questionable for loosening. No evidence of lucency at the femoral or patellar components is seen. There may be cystic changes of the patella. No fracture or dislocation. No significant joint effusion. Standing AP view of the left knee demonstrates a left knee replacement. There is 2 mm lucency adjacent to the inferior left tibial component. This is similar to 2016 exam. XR/XR knee RT 2V IMPRESSION: Right knee: Question loosening along the inferior right tibial prosthesis. Left knee: Stable appearance of left knee replacement.
== END 2022-06-29 11:10 | disposition home or self-care (01) ==
LOC: HO.HOSX 11:09
PROVIDERS: Visit Provider Orthopaedic Surgery
DX: Z96.651 Presence of right artificial knee joint (principal)
CPT/HCPCS: 73560; 73565; 99212

== ENCOUNTER 2025-05-21 12:08 | Outpatient (REF) | payer MEDICARE, OTHER, SELFPAY ==
--- NOTE | ~2025-05-21 | XR_ITS ---
CLINICAL HISTORY: M25.561 - Pain in right knee AP standing view of bilateral knees, two views of right knee Comparison: None provided Findings: Bilateral knee arthroplasty. No fractures or dislocations. No significant arthritic change or erosions. No joint effusion. No radiopaque foreign body. IMPRESSION: 1. No acute findings. This document has been electronically signed by: Santy Maria MD on 05/21/2025 16:55:03
--- OUTSIDE RECORDS SUMMARY | 2025-05-21 12:30 | XMS_ITS | Clinical Summary ---
Author Organization [facility] [place] [address] Care Team Providers Care Sales Operations Name Role Phone Braydon Wallis DO Primary Care Provider [phone] Allergies Active Allergy Reactions Criticality Noted Date Comments Oxycodone Nausea Only,Palpitations 08/04/2015 Dizziness Medications celecoxib (CELEBREX) 200 mg capsule 02/05/2003 Active esomeprazole (NEXIUM) 20 mg Capsule, Delayed Release(E.C.) Take 20 mg by mouth 2 times daily. Active Active Problems Problem Noted Date Diagnosed Date H/O total knee replacement r ight [address] [place] [facility] 08/06/2015 Primary osteoarthritis of left hip 08/04/2015 Family History Medical History Relation Comments Cancer Mother Pancreatic Cancer Paternal Aunt Breast Relation Status Comments Mother Paternal Aunt Social History Tobacco Use Types Packs/Day Years Used Date Smoking Tobacco: Former Smokeless Tobacco: Never Alcohol Use Standard Drinks/Week Comments No 0 (1 standard drink = 0.6 oz pur e alcohol) Comments Unknown Sex and Gender Information Value Date Recorded Sex Assigned at Not on file Legal Sex Female 5:52 AM EST Gender Identity Not on file Sexual Orientation Not on file Last Filed Vital Signs Vital Sign Reading Time Taken Comments Blood Pressure 117/70 08/04/2015 1:36 PM EDT Pulse 98 08/04/2015 1:36 PM EDT Temperature - - Respiratory Rate - - Oxygen Saturation - - Inhaled Oxygen Concentration - - Weight 105.9 kg (233 lb 6.4 oz) 08/04/2015 1:36 PM EDT fully clothed Height 175.3 cm (5' 9 ) 08/04/2015 1:36 PM EDT verbal Body Mass Index 34.47 08/04/2015 1:36 PM EDT Plan of Treatment Health Maintenance Due Date Last Done Comments Hepatitis C Screening 01/09/1966 Tetanus/Diphtheria/Pertussis Vaccines (1 - Tdap) 01/09/1967 Pneumoccocal Vaccine: 50+ (1 of 1 - PCV) 01/09/1998 Zoster vaccine (1 of 2) 01/09/1998 Advance Directive 01/09/2003 Bone Density Scan 01/09/2013 RSV Vaccine (1 - 1-dose 75+ series) 01/09/2023 Covid-19 Vaccine (3 - season) 06/15/202411/2020, 12/14/2020 Influenza (Flu) vaccine (1 o f 1 - Influenza standard series) 06/15/2025 Insurance [employer] Care Teams Sales Operations Relationship Specialty Start Date End Date Braydon Wallis DO [address] [place] [id number] PCP - General Family Medicine 05/27/24
== END 2025-05-21 12:09 | disposition home or self-care (01) ==
LOC: HO.HOSX 12:08
PROVIDERS: Visit Provider Orthopaedic Surgery
DX: M25.561 Pain in right knee (principal); M25.461 Effusion, right knee; Z96.651 Presence of right artificial knee joint
CPT/HCPCS: 73562; 99212

== ENCOUNTER 2025-05-21 12:35 | Outpatient (AMB) | payer MEDICARE, SELFPAY ==
--- NOTE | 2025-05-21 12:45 | MHC.OFFVIS ---
Intake Visit Reasons: OV- Right knee/ swelling limited W/B Intake Note: Justine is a 75 year old female who presents today for a follow up visit of her right knee. She reports that she is having continued pain and swelling. Hx of Right TKA 11/26/2012. In 2021 she was referred to Pain management for a possible geniculate trial. Patient was scheduled to have a consult but later cancelled her appointment. Currently she reports that the right knee is feeling unstable. Allergies ibuprofen Allergy (Intermediate, Verified 08/18/21 10:33) Insomnia, leg tremors oxycodone (OXYCODONE) Allergy (Intermediate, Verified 08/18/21 10:33) SOB,PALPATATIONS, itching HPI HPI OV- Right knee/ swelling limited W/B: Details: Justine is a 75 year old female who presents today for a follow up visit of her right knee. She reports that she is having continued pain and swelling. Hx of Right TKA 11/26/2012. In 2021 she was referred to Pain management for a possible geniculate trial. Patient was scheduled to have a consult but later cancelled her appointment. Currently she reports that the right knee is feeling unstable. She states she describes episodes when she 1st gets up or out of a chair out of bed when she starts to walk and she feels that her knee is almost locked and she has to manipulate it back into position so that she can ambulate. This is concerning to her. She feels that she is going to fall. She did see me several years ago for knee pain in this same knee but that has resolved completely and this is nothing like that. She denies fevers and chills. [facility] Medical History A-fib Acid reflux Arthritis GERD (gastroesophageal reflux disease) History of transient ischemic attack Hyperlipidemia Paroxysmal atrial fibrillation Primary osteoarthritis of right hip Surgical History History of back surgery History of hip surgery History of knee surgery Hx of bilateral cataract extraction Hx of colonoscopy S/P total hip arthroplasty Social History Are you a primary day care home mother to a significant other at home: No Do you presently have visiting nurse or other home services: No Alcohol intake: never Comment: aware of trip hazard Patient Tobacco Use Status: Former Tobacco user Tobacco use type: Cigarette Years Smoked: 50 Advance Directives Date on File: 06/28/21 Current occupational status: retired Current occupation: right handed Physical Exam Extrem Other: Right knee incision is clean dry and intact. There is no effusion. There is moderate MCL laxity with intact MCL and moderate AP laxity. Her range of motion is full. She is tender over the anteromedial tibial plateau. Results Reviewed Results Reviewed: I personally reviewed relevant radiographs. The lateral radiograph is concerning for posterior subluxation of the tibial component. There is no evidence of loosening Assessment & Plan Assessment & Plan (1) History of total right knee replacement: Comment: DOS: 11/26/12 Code(s): Z96.651 - Presence of right artificial knee joint Category: Surgical Plan: This is a 75-year-old woman approximately 12 years status post right knee replacement. She had been doing well but over the past year has been having symptoms of instability. She feels that her knee is subluxing and will not bend until she manipulates it into the proper position. Her lateral radiograph is concerning for posterior subluxation of the tibial component certainly when compared to prior and she has significant laxity on ligamentous testing. All of this combines for her feeling that her right knee is unstable. She is concerned she is going to fall. She can not walk long distances. There is no evidence of infection or loosening. I recommend a right knee revision with liner exchange only. I explained the rationale to her. Clinically speaking she appears unstable and the knee is loose ligamentously. Most concerning is the subluxation on the lateral radiograph. This is consistent with her symptoms of feeling that her knee is sliding in and out of position. I would like to rule out infection although there is absolutely no evidence of infection. I also described that it is possible that liner exchange we will not sufficiently ameliorate her symptoms and that further surgery would be required. I explained to her the risks, benefits and alternatives to surgery. I explained the options of nonoperative management and bracing and physical therapy. She feels she has done physical therapy and she does not want to continue to feel unstable on her feet. The risks of surgery were discussed and include both surgical and medical risks associated with surgery. Surgical risks include infection which can lead to further surgery or even amputation, there is risk of nerve injury risk of arterial injury. There is risk of incomplete symptom resolution. There is risk of perioperative fracture. There is risk of continued pain. Medical risks include, but are not limited to, the risk of blood clots, PE, organ failure, stroke, . She is healthy and active. She takes Eliquis for atrial flutter in his currently on semaglutide for weight loss. I ordered labs and ESR/CRP and we will begin the preoperative clearance process. I answered her questions to the best of my abilities. Orders: Orders XR knee RT 3V 05/21/25 M25.561 - Pain in right knee Erythrocyte Sedimentation Rate Today Z96.651 - Presence of right artificial knee joint C Reactive Protein Today Z96.651 - Presence of right artificial knee joint Coding Level of Care Code Est Pt Level 4 (53904) Diagnoses History of total right knee replacement Z96.651
== END 2025-05-21 13:30 | disposition home or self-care (01) ==
LOC: HO.HOS 12:36
PROVIDERS: PCP Nurse Practitioner Family; Visit Provider Orthopaedic Surgery
DX: M25.561 Pain in right knee (principal); Z96.651 Presence of right artificial knee joint
CPT/HCPCS: 99214

== ENCOUNTER → 2025-05-21 12:40 | Outpatient (BNV) | payer MEDICARE, SELFPAY | PROVIDERS: Visit Provider Radiology Diagnostic Radiology | DX: M25.561 Pain in right knee (principal) | CPT/HCPCS: 73562 ==

== ENCOUNTER → 2025-07-28 13:04 | Outpatient (BNVA) | payer MEDICARE, SELFPAY | PROVIDERS: PCP Orthopaedic Surgery | DX: Z01.818 Encounter for other preprocedural examination (principal) ==

== ENCOUNTER 2025-07-29 | Outpatient (REF) | payer MEDICARE, OTHER, SELFPAY ==
[2025-07-29 11:46] VITALS: BP 129/69; PULSE 83; RESP 20; O2SAT 97; BMI 33.0
--- NOTE | 2025-07-29 12:04 | HO.ANESPROP2 ---
Documented by User: Lay Mansfield NP 07/31/25 12:23 HPI - Anesthesia Eval Consult details Narrative: 75yo F for Right Knee Total Revision (liner exchange), 08/04/25 Medically optimized per [facility] s/p bilat TKA's 2012 & 2013 No recent illness No CP/SOB with walking - limited by joint pain Afib: on eliquis. s/p ablation x 2 (last 02/2025) GERD: prn ppi controls Anesthesia Pre-Procedure Meds Is the patient on any of the following meds?: GLP1/DPP4 (07/19/25) PMFSH Active Problems Active Problems: All Active Problems Asymptomatic varicose veins of both lower extremities (Acute) Right knee pain (Acute) History of total right knee replacement (Acute) Status post total hip replacement, right (Acute) Atrial flutter (Acute) Tachycardia (Acute) Past Medical History Medical History (Updated 07/29/25 @ 11:40 by Rosalind Worley RN) Family history of anesthesia complication Anticoagulant long-term use Varicose vein of leg Osteoarthritis GERD (gastroesophageal reflux disease) Hyperlipidemia History of transient ischemic attack A-fib Family History Family history of problems with anesthesia: No Surgical History Surgical History Hx of appendectomy Hx of tonsillectomy History of total left knee replacement Hx of hand surgery Hx of hernia repair History of cardiac ablation for atrial fibrillation History of total right knee replacement S/P total hip arthroplasty Hx of bilateral cataract extraction History of back surgery Hx of colonoscopy History of Problems with Anesthesia: No Social History Social History Are you a primary account executive healthcare to a significant other at home: No Do you presently have visiting nurse or other home services: Yes (has [employer] for emergencies) Alcohol intake: never Comment: aware of trip hazard Patient Tobacco Use Status: Former Tobacco user Tobacco use type: Cigarette Years Smoked: 50 Use of substances other than those prescribed or required for medical reasons: No Have you been hit, kicked, punched, or otherwise hurt by someone within the past year? If so, by whom?: No Spiritual Healthcare Practices: no Yarsani Healthcare Practices: no Cultural Healthcare Practices: no Are you DNR?: No Advance Directives: Yes (states daughter is HCP) Advance Directives Information Provided: Yes Advance Directives on File: Yes Advance Directives Date on File: 06/28/21 FDLMP: n/a Poor oral hygiene: No (multiple crowns, brittany. upper front) Current occupational status: retired Current occupation: right handed Meds Allergies Allergy/AdvReac Type Severity Reaction Status Date / Time ibuprofen Allergy Intermediate Insomnia, Verified 07/30/25 13:31 leg tremors oxycodone (OXYCODONE) Allergy Intermediate dyspnea/pal Verified 07/30/25 13:31 pitations/i tching/naus ea Home Medications ?Medication ?Instructions ?Recorded ?Confirmed ?Last Taken ?Type apixaban 5 mg tablet (Eliquis) 1 tab PO BID 06/28/21 07/30/25 06/30/21 History semaglutide (weight loss) 2.4 2.4 mg subcut QWEEK 05/21/25 07/30/25 07/19/25 History mg/0.75 mL subcutaneous pen injector (Wegovy) multivitamin 1 tab PO QAM 07/28/25 07/30/25 Unknown History omeprazole 20 mg tablet,delayed 20 mg PO DAILY PRN Acid Reflux 07/28/25 07/30/25 Unknown History release diltiazem HCl 120 mg 120 mg PO QAM 07/29/25 07/30/25 Unknown History capsule,extended release 24 hr lactobacillus comb no.10 20 20,000 mmu cells PO DAILY 07/29/25 07/30/25 Unknown History billion cell capsule (Probiotic) Exam Height,Weight and Vital Signs: Height 5 ft 9 in Weight 101.4 kg Last Vital Signs Pulse 83 07/29/25 11:46 Resp 20 07/29/25 11:46 BP 129/69 07/29/25 11:46 Pulse Ox 97 07/29/25 11:46 O2 Del Method Room Air 07/29/25 11:46 Pertinent Lab Results Pertinent Lab Results: Lab Results 07/29/25 07/29/25 07/29/25 Range/Units 12:00 12:58 13:01 WBC 5.7 (4.8-10.8) X10*3/uL RBC 4.40 (4.20-5.50) X10*6/uL Hgb 13.0 (12.0-16.0) g/dl Hct 40.2 (37.0-47.0) % MCV 91.4 (80.0-98.0) fL MCH 29.5 (27.0-33.0) pg MCHC 32.3 (31.0-35.0) g/dl RDW 12.8 (11.0-16.0) % Plt Count 299 (160-400) X10*3/uL MPV 8.6 L (9.4-12.3) fL Absolute Nucleated RBC 0.000 (0.0-0.012) X10*3/uL Nucleated RBC % (auto) 0.0 (0.0-0.2) /100WBC Sodium 143 (135-145) mmol/L Potassium 4.2 (3.3-5.1) mmol/L Chloride 107 (96-108) mmol/L Carbon Dioxide 28 (22-29) mmol/L Anion Gap 12 (12-20) BUN 8 L (9-16) mg/dL Creatinine 0.59 (0.5-1.4) mg/dL Estim Creat Clear Calc 101.2 Estimated GFR > 60 Random Glucose 88 (60-115) mg/dL Calcium 9.1 D (8.4-10.2) mg/dL Nasal Screen MRSA (PCR) NEGATIVE (Negative) Nasal S. aureus Screen NEGATIVE (Negative) Nasal MRSA/S.aureus Interp SEE NOTE Blood Type A Negative Antibody Screen NEGATIVE Narrative Narrative: EKG 06/2025 Ventricular Rate: 84 BPM Atrial Rate: 84 BPM P-R Interval: 148 ms QRS Duration: 90 ms Q-T Interval: 380 ms QTC Calculation(Bazett): 449 ms P Wagoner: 36 degrees R Wagoner: -15 degrees T Wagoner: 7 degrees Normal sinus rhythm Consider old inferior infarct Poor R wave progression Abnormal ECG When compared with ECG of 24-Feb-2025 09:10, No significant change was found Confirmed by Harshil Evans ([id number]) on 07/18/2025 2:18:42 PM Echocardiogram - Complete ? 10:29:15 Summary 1. The left ventricular size is normal. The left ventricular wall thickness is mildly increased. There is mild concentric left ventricular hypertrophy. The LV systolic function is normal . The left ventricular ejection fraction is 55-60 %. There are no regional wall motion abnormalities. Diastolic function is indeterminate. 2. The left atrium is mildly dilated. An agitated saline study (bubble study) was performed and was normal at rest and with Valsalva. There is no evidence of right to left shunting. 3. The right ventricle is mildly dilated. Right ventricular systolic function appears preserved. 4. The aortic root is normal in size. There is mild dilation of the ascending aorta measuring 3.9 cm. 5. There is mild mitral annular calcification. The mitral valve appears mildly thickened and calcified. There is mild mitral regurgitation. 6. The pulmonary artery systolic pressure estimation is within normal limits. The inferior vena cava size is normal with normal inspiratory collapse. The central venous pressure estimation is 3 mmHg. Airway Mallampati Class: III TM Dist: >3cm Neck ROM: Limited (Chronic stiff neck. No surgery) Loose/Missing/Broken Teeth: No (Crowns throughout including front upper) Heart: RRR Lungs: CTAB Assessment and Plan Assessment Anesthesia Assessment: Anesthesia Plan Discussed and PAT Visit Final Anesthetic Review Family History of Problems with Anesthesia: No History of Problems with Anesthesia: No Documented by User: Vianney Daniels MD 08/13/25 08:03 [facility] Past Medical History Medical History (Updated 07/29/25 @ 11:40 by Rosalind Worley RN) Family history of anesthesia complication Anticoagulant long-term use Varicose vein of leg Osteoarthritis GERD (gastroesophageal reflux disease) Hyperlipidemia History of transient ischemic attack A-fib Surgical History Surgical History Hx of appendectomy Hx of tonsillectomy History of total left knee replacement Hx of hand surgery Hx of hernia repair History of cardiac ablation for atrial fibrillation History of total right knee replacement S/P total hip arthroplasty Hx of bilateral cataract extraction History of back surgery Hx of colonoscopy Social History Social History Are you a primary account executive healthcare to a significant other at home: No Do you presently have visiting nurse or other home services: Yes (has [employer] for emergencies) Alcohol intake: never Comment: aware of trip hazard Patient Tobacco Use Status: Former Tobacco user Tobacco use type: Cigarette Years Smoked: 50 Use of substances other than those prescribed or required for medical reasons: No Have you been hit, kicked, punched, or otherwise hurt by someone within the past year? If so, by whom?: No Spiritual Healthcare Practices: no Yarsani Healthcare Practices: no Cultural Healthcare Practices: no Are you DNR?: No Advance Directives: Yes (states daughter is HCP) Advance Directives Information Provided: Yes Advance Directives on File: Yes Advance Directives Date on File: 06/28/21 FDLMP: n/a Poor oral hygiene: No (multiple crowns, brittany. upper front) Current occupational status: retired Current occupation: right handed Meds Allergies Allergy/AdvReac Type Severity Reaction Status Date / Time ibuprofen Allergy Intermediate Insomnia, Verified 07/30/25 13:31 leg tremors oxycodone (OXYCODONE) Allergy Intermediate dyspnea/pal Verified 07/30/25 13:31 pitations/i tching/naus ea Home Medications ?Medication ?Instructions ?Recorded ?Confirmed ?Last Taken ?Type apixaban 5 mg tablet (Eliquis) 1 tab PO BID 06/28/21 07/30/25 06/30/21 History semaglutide (weight loss) 2.4 2.4 mg subcut QWEEK 05/21/25 07/30/25 07/19/25 History mg/0.75 mL subcutaneous pen injector (Wegovy) multivitamin 1 tab PO QAM 07/28/25 07/30/25 Unknown History omeprazole 20 mg tablet,delayed 20 mg PO DAILY PRN Acid Reflux 07/28/25 07/30/25 Unknown History release diltiazem HCl 120 mg 120 mg PO QAM 07/29/25 07/30/25 Unknown History capsule,extended release 24 hr lactobacillus comb no.10 20 20,000 mmu cells PO DAILY 07/29/25 07/30/25 Unknown History billion cell capsule (Probiotic) Assessment and Plan Final Anesthetic Review ASA Class: III Final Preanesthetic Review: No Changes in Pt Med Stat, Meds/Allgs Chart Reviewed, Consent Obtained/Reviewed and Anes Risks/Benef Reviewed Patient Risk: Intermediate Procedure Risk: Intermediate Anesthetic Plan Anesthetic Plan: GA, Spinal, Regional Block and Agree w/ Assess. and Plan Disposition: Standard PACU
[2025-07-29 13:46] LABS: Hematocrit 40.2 % (37.0-47.0); Hemoglobin 13.0 g/dl (12.0-16.0); Mean Corpuscular HGB Conc 32.3 g/dl (31.0-35.0); Mean Corpuscular Hemoglobin 29.5 pg (27.0-33.0); Mean Corpuscular Volume 91.4 fL (80.0-98.0); NRBC Abs Auto 0.000 X10*3/uL (0.0-0.012); NRBC Pct Auto 0.0 /100WBC (0.0-0.2); Platelet Count 299 X10*3/uL (160-400); Red Blood Count 4.40 X10*6/uL (4.20-5.50); White Blood Count 5.7 X10*3/uL (4.8-10.8)
[2025-07-29 14:09] LABS: MRSA Nasal PCR NEGATIVE (Negative); SA Nasal PCR NEGATIVE (Negative)
[2025-07-29 14:16] LABS: Anion Gap 12 (12-20); Blood Urea Nitrogen 8 mg/dL (9-16); Calcium 9.1 mg/dL (8.4-10.2); Carbon Dioxide 28 mmol/L (22-29); Chloride 107 mmol/L (96-108); Creatinine Clr Calc Pharmacy 101.2; Estimated Glomerular Filt Rate > 60; Potassium 4.2 mmol/L (3.3-5.1); Sodium 143 mmol/L (135-145)
--- OUTSIDE RECORDS SUMMARY | 2025-09-08 11:05 | XMS_ITS | Encounter Summary ---
Author Organization [facility] Address [address] [place] [address] Phone Care Team Providers Care Molding Line Assistant Name Role Phone Braydon Wallis DO Primary Care Provider [phone] Reason for Referral * Consultation (Routine) - New Request Specialty Diagnoses / Procedures Referred By Piter t Referred To Contact System, Provider Not In, [facility] [address] [address] Ba Kwon MD [address] [place] [address] Orthopedics & Sports Medicine, [place] [address] Phone: tel: fax: [email or web address] Referral ID Status Reason Start Date Expiration Date V isits Requested Visits Authorized [id number] New Request 09/07/2025 09/07/2026 1 1 Encounter Details Date Type Department Care Team (Late st Contact Info) Description 09/07/2025 Transcribe Orders [facility] Access Center - Virtual Department [address] [place] [address] Nahid Jain MD [address] [place] [address] [address] [place], [place] [id number] [email or web address] Social History Tobacco Use Types Packs/Day Years Used Date Smoking Tobacco: Never Assessed Education Answer Date Recorded Are you interested in more education? Not on marcial e 02/09/2023 Are you concerned about learning? Not on file 02/09/2023 No 02/09/2023 No 02/09/2023 Digital Access Answer Date Recorded No 03/12/2023 No 03/12/2023 No 03/12/2023 Reliable internet access at home? Not on file 03/12/2023 Device with a working camera? Not on file Comments Unknown Sex and Gender Information Value Date Recorded Sex Assigned at Not on file Legal Sex Female 11:19 PM EDT Gender Identity Not on file Sexual Orientation Not on file documented as of this encounter Plan of Treatment Upcoming Encounters Date Type Department Care Team (Late st Contact Info) Description 10/01/2025 10:15 AM EST Office Visit [facility] [address] [place] [address] Ba Kwon MD [address] [place] [address] Orthopedics & Sports Medicine, [facility] [place] [address] [email or web address] Scheduled Referrals Name Type Priority Associated Diagnoses Order Schedule Ambulatory referral to [facility] Orthopedics - [facility] Practices Outpatient Referral Routine Ordered: 09/07/2025 documented as of this encounter Visit Diagnoses Not on filedocumented in this encounter Care Teams Molding Line Assistant Relationship Specialty Start Date End Date Braydon Wallis DO [address] [place] [address] [address] [place] [address] PCP - General Family Medicine 09/07/25 documented as of this encounter Additional Source Comments The information contained in this document represents components of the legal health record. It is not the complete legal health record.[facility]
--- OUTSIDE RECORDS SUMMARY | 2025-09-08 11:05 | XMS_ITS | Clinical Summary ---
Author Organization [facility] [place] [address] Care Team Providers Care Correctional Counselor/Case Manager Name Role Phone Braydon Wallis DO Primary Care Provider [phone] Allergies Active Allergy Reactions Criticality Noted Date Comments Oxycodone Nausea Only,Palpitations 08/04/2015 Dizziness Medications celecoxib (CELEBREX) 200 mg capsule 02/05/2003 Active esomeprazole (NEXIUM) 20 mg Capsule, Delayed Release(E.C.) Take 20 mg by mouth 2 times daily. Active Active Problems Problem Noted Date Diagnosed Date H/O total knee replacement r ight [address] Gomez [facility] 08/06/2015 Primary osteoarthritis of left hip 08/04/2015 [...] 06/15/2025 Insurance [employer] MEDICARE Care Teams Correctional Counselor/Case Manager Relationship Specialty Start Date End Date Braydon Wallis DO [address] [place] [address] PCP - General Family Medicine 05/27/24
--- OUTSIDE RECORDS SUMMARY | 2025-09-08 11:05 | XMS_ITS | Clinical Summary ---
Author Organization [facility] Address [address] [place] [id number] Phone Care Team Providers Care Finance Effectiveness Manager Name Role Phone Braydon Wallis DO Primary Care Provider [phone] Medications omeprazole (PRILOSEC) 20 MG capsule Take 20 mg by mouth 2 (two) times a day. 05/10/2019 Active acetaminophen (TYLENOL) 325 mg tablet Take 650 mg by mouth every 6 (six) hours as needed for pain (specific location in comments). 05/10/2019 Active aspirin 325 MG tablet Take 325 mg by mouth 2 (two) times a day. 05/10/2019 Active Encounters Date Type Department Care Team Description 09/07/2025 Transcribe Orders [facility] - Virtual Department [address] [place] [address] Nahid Jain MD from Last 3 Months Social History Tobacco Use Types Packs/Day Years [...] Sign Reading Time Taken Comments Blood Pressure 120/72 05/23/2019 9:19 AM EDT pos t activity Pulse 96 05/23/2019 9:05 AM EDT Temperature 36.7 C (98.1 F) 05/23/2019 9:05 AM EDT Respiratory Rate 18 05/23/2019 9:05 AM EDT Oxygen Saturation 98% 05/23/2019 9:05 AM EDT Inhaled Oxygen Concentration - - Weight - - Height - - Body Mass Index - - Plan of Treatment Upcoming Encounters Date Type Department Care Team (Late st Contact Info) Description 10/01/2025 10:15 AM EST Office Visit [facility] Orthopedics & Sports Medicine [address] [place] [id number] Ba Kwon MD [address] [place] [address] Orthopedics & Sports Medicine, [facility] [place] [address] Health Maintenance Due Date Last Done Comments Adult Td,Tdap Booster 1950 LIPID PANEL 1948 DEPRESSION SCREENING 1960 SMOKING Hx and SMOKELESS TOBACCO SCREENING 01/09/1961 HEPATITIS C SCREENING 01/09/1966 PNEUMOCOCCAL VACCINES (50+ years) (1 of 1 - PCV) 01/09/1998 ZOSTER VACCINES (1 of 2) 01/09/1998 OSTEOPOROSIS SCREENING INITI AL (ONE-TIME) 01/09/2013 RSV VACCINE (1 - 1-dose 75+ series) 01/09/2023 INFLUENZA VACCINE (#1) 2025 COVID-19 VACCINE (3 - 2024-2 6 season) 2025 01/14/2021, 12/14/2020 HEPATITIS A VACCINES Aged Out No long er eligible based on patient's age to complete this topic HIB VACCINES Aged Out No longer eligi ble based on patient's age to complete this topic MENINGOCOCCAL VACCINES (ACWY) Aged Out No longer eligible based on patient's age to complete this topic MENINGOCOCCAL VACCINES (B) Aged Out N o longer eligible based on patient's age to complete this topic Medical Devices Not on file Insurance [facility] MEDICARE PPO [place] [address] [place] [id number] [employer] [facility] MEDICARE PPO [place] [address] [place] [address] [employer] MEDICARE PPO BLUE REPLACEMENT MEDICARE PPO BLUE REPLACEMENT MEDICARE PPO BLUE REPLACEMENT [address] [place], [place] [id number] MEDICARE PPO BLUE REPLACEMENT MEDICARE PPO BLUE REPLACEMENT [address] [place], [place] [id number] [facility]IC[facility] BL[facility] Care Teams Finance Effectiveness Manager Relationship Specialty Start Date End Date Braydon Wallis DO [address] [address] [place] [address] [email or web address] PCP - General Family Medicine 09/07/25 Additional Source Comments The information contained in this document represents components of the legal health record. It is not the complete legal health record.[facility]
== END 2025-07-29 00:01 ==
LOC: HO.PAT
PROVIDERS: Nurse Practitioner; Physician Assistant; PCP Family Medicine; Visit Provider Orthopaedic Surgery
DX: Z01.818 Encounter for other preprocedural examination (principal); Z01.84 Encounter for antibody response examination; M25.50 Pain in unspecified joint; Z96.653 Presence of artificial knee joint, bilateral
CPT/HCPCS: 36415; 80048; 85027; 86850; 86900; 86901; 87640; 87641

== ENCOUNTER 2025-07-30 13:19 | Outpatient (REF) | payer MEDICARE, OTHER, SELFPAY | END 2025-07-30 13:20 | disposition home or self-care (01) | LOC: HO.LAB 13:19 | PROVIDERS: PCP Family Medicine; Visit Provider Physician Assistant | DX: Z47.1 Aftercare following joint replacement surgery (principal); I48.91 Unspecified atrial fibrillation; I48.92 Unspecified atrial flutter; Z79.01 Long term (current) use of anticoagulants; Z96.651 Presence of right artificial knee joint | CPT/HCPCS: 36415; 85652; 86140 ==

== ENCOUNTER 2025-07-30 13:19 | Outpatient (AMB) | payer MEDICARE, SELFPAY ==
--- NOTE | 2025-07-29 20:46 | MHC.OFFVIS ---
Vital Signs 07/30/25 13:32 Height 5 ft 9 in Weight 221 lb BMI 32.6 Intake Visit Reasons: Pre-Op: R TKA Rev. w/NE 08/04/25 Intake Note: Justine is a 75 year old female who presents today for a preoperative visit of right TKA, revisions, DOS 08/04/25. Pain management agreement reviewed and signed. Allergies ibuprofen Allergy (Intermediate, Verified 07/30/25 13:31) Insomnia, leg tremors oxycodone (OXYCODONE) Allergy (Intermediate, Verified 07/30/25 13:31) dyspnea/palpitations/itching/nausea Medication List - Last Reconciled 07/30/25 by Susy Cordova PA-C acetaminophen 650 mg (2 x 325 mg) PO Q6H PRN 30 days apixaban (Eliquis) 1 tab PO BID diltiazem HCl CD 120 mg PO QAM [Folding Front Wheeled walker Duration: 99 days] lactobacillus comb no.10 (Probiotic) 20,000 mmu cells PO DAILY multivitamin 1 tab PO QAM omeprazole 20 mg PO DAILY PRN semaglutide (weight loss) (Wegovy) 2.4 mg subcut QWEEK HPI HPI Pre-Op: R TKA Rev. w/NE 08/04/25: Details: HPI Comments Details: Ms Cobos presents to the office today for Orthopedic Pre op clearance. She is scheduled for a revision right total knee arthroplasty ( liner exchange ) on 08.04.[address] Gomez. She is s/p RT TKA 2012. She was seen for a f/u with Dr Gomez in 2021 with concerns of some clicking in her knee and a catching sensation occasionally when she walks or leans forward. Her pain worsened with activity, and she has difficulty with tasks such as shopping for groceries. She says she can walk for ~30 minutes before she is hobbling due to her pain. she reports that the right knee is feeling unstable. She states she describes episodes when she 1st gets up or out of a chair out of bed when she starts to walk and she feels that her knee is almost locked and she has to manipulate it back into position so that she can ambulate. This is concerning to her. She feels that she is going to fall. She lives alone in a one level home with ten steps to enter Ms Gomez was evaluated by [facility] Nurse Practitioner Amirah Agudelo on 07/06/25. She has a PMH significant for TIA, A flutter s/p catheter ablation 11/2021, anticoagulated on Eliquis. A fib 08/2024, s/p ablation 02/24/25. She has HTN, HLD, GERD and OA. No concerning cardiovascular symptoms. No history of coronary disease or MT. She has not had recurrent A-fib or flutter since her ablations. Low risk to hold Eliquis 2 days prior to surgical procedure and continue postop. she did question her need for Eliquis, but with her history of TIA, age and hypertension it is still recommended. She hasn't had issues with bleeding or falls. BP is well controlled, continue diltiazem. No history of complications in perioperative periods. Primary clearance obtained by Dr Marino noriega 07/16/25. [facility] Medical History (Updated 07/29/25 @ 11:40 by Rosalind Worley RN) Family history of anesthesia complication Anticoagulant long-term use Varicose vein of leg Osteoarthritis GERD (gastroesophageal reflux disease) Hyperlipidemia History of transient ischemic attack A-fib Surgical History Hx of appendectomy Hx of tonsillectomy History of total left knee replacement Hx of hand surgery Hx of hernia repair History of cardiac ablation for atrial fibrillation History of total right knee replacement S/P total hip arthroplasty Hx of bilateral cataract extraction History of back surgery Hx of colonoscopy Social History Are you a primary coronary care unit nurse to a significant other at home: No Do you presently have visiting nurse or other home services: Yes (has [employer] for emergencies) Alcohol intake: never Comment: aware of trip hazard Patient Tobacco Use Status: Former Tobacco user Tobacco use type: Cigarette Years Smoked: 50 Advance Directives Date on File: 06/28/21 Current occupational status: retired Current occupation: right handed Review of Systems Const All systems reviewed & are unremarkable except as noted in HPI and below Physical Exam Vital Signs: BMI result Body Mass Index 32.6 Const General: cooperative, healthy appearing, comfortable and no acute distress Orientation/consciousness: patient oriented x3 HEENT Head: Yes normal to inspection and Yes atraumatic Ears: hearing grossly normal bilaterally Eyes General: appearance normal, both eyes and all related structures Neck Neck: Yes normal visual inspection and Yes no lymphadenopathy Resp Effort & Inspection: normal respiratory effort and able to speak in complete sentences Cardio Peripheral pulses: Peripheral pulses 2+ throughout Neuro General: patient oriented x3 Extrem Other: Right knee surgical scar present. There is no effusion. There is moderate MCL laxity with intact MCL and moderate AP laxity. Her range of motion is full. She is tender over the anteromedial tibial plateau. Psych Appearance: well kempt Assessment & Plan Assessment & Plan (1) History of total right knee replacement: Comment: DOS: 11/26/12 Code(s): Z96.651 - Presence of right artificial knee joint Category: Surgical Plan: Has exhausted all conservative measures consisting of lifestyle modifications, physical therapy, analgesics, corticosteroid injections and use of assisted devices and continues to have significant limitations in daily activities along with decreased quality of life. Given the patient's desire to improve their quality of life, surgical intervention consisting of joint replacement surgery is recommended at this time.? We discussed the procedure in detail today; which includes pre op preparation with labs and reviewing patients medication regimen prior to surgery. She does understand she will hold Eliquis 3 days pre op and Wegovy 7 days pre op. She will take her Diltiazem and Omeprazole the morning of surgery with a small sip of water. She was sent to the lab for ESR and CRP. I discussed at length the post op course which includes physical therapy services in the hospital along with the discharge routine and the patients plan upon discharge. I explained to the patient, once they are DC home, they will receive VNA services which will include PT 2-3x per week. We also discussed their choice for outpatient PT once they are discharged from home PT. Patient lives in the [facility] and will need to attend physical therapy up [place]. Post op DVT ppx was also discussed and the considering the patients h/o TIA, afib and aflutter she will be placed on Lovenox 40mg sub Q x1 dose beginning POD 1 and resume her home dose of Eliquis POD 2. I reviewed with the patient their post op pain medication regimen along with the detailed wean program. The patient did express understanding of this and agreed to the narcotic policy. Lastly, I discussed with the patient the risks to the procedure. Risks including but not limited to infection, injury to surrounding nerves, tissue , bone, small and large vessels, stiffness, aseptic loosening, fracture, dislocation, amputation, DVT/PE along with intraoperative complications including but not limited to . The patient does express understanding, all questions were answered and the patient would like to proceed? with Revision right total knee arthroplasty ( liner exchange) with Dr. Gomez. Consents were signed and dated while in the office today.? Post-Operative Recovery Notes: DVT ppx :[facility] DC plan: Home with VNA Physical Therapy: MVP Orders: Orders C Reactive Protein Today Z96.651 - Presence of right artificial knee joint Erythrocyte Sedimentation Rate Today Z96.651 - Presence of right artificial knee joint Coding Level of Care Code Est Pt Level 3 (01107) Complex EM visit Add On G2211 Diagnoses History of total right knee replacement Z96.651
[2025-07-30 13:32] VITALS: BMI 32.6
--- OUTSIDE RECORDS SUMMARY | 2025-07-30 16:43 | XMS_ITS | Clinical Summary ---
Author Organization Pending Sale To [place] [address] Care Team Providers Care Fire Prevention Specialist Name Role Phone Braydon Wallis DO Primary Care Provider [phone] Allergies Active Allergy Reactions Criticality Noted Date Comments Oxycodone Nausea Only,Palpitations 08/04/2015 Dizziness Medications celecoxib (CELEBREX) 200 mg capsule 02/05/2003 Active esomeprazole (NEXIUM) 20 mg Capsule, Delayed Release(E.C.) Take 20 mg by mouth 2 times daily. Active Active Problems Problem Noted Date Diagnosed Date H/O total knee replacement r ight [address] Gomez [facility] 08/06/2015 Primary osteoarthritis of left hip 08/04/2015 [...] series) 01/09/2023 Covid-19 Vaccine (3 - season) 06/15/202511/2020, 12/14/2020 Influenza (Flu) vaccine (1 o f 1 - Influenza standard series) 06/15/2025 Insurance [employer] MEDICARE Care Teams Fire Prevention Specialist Relationship Specialty Start Date End Date Braydon Wallis DO [address] [place] [id number] PCP - General Family Medicine 05/27/24
--- OUTSIDE RECORDS SUMMARY | 2025-07-30 16:43 | XMS_ITS | Data Portability ---
Author Organization [place] - [facility], [employer] Address [address] [place] [address] Assessment Encounter Date Assessment Date Assessment LastModified by Organization Details LastModified Time 02/12/2025 02/12/2025 Assessment - Inflamed cyst, not currently infected but at risk of infection if manipulated while inflamed. - Solar Lentigo - Observation. Return if change. Sun protection stressed Plan - Prescribe cephalexin for the skin inflammation to be taken every 6 hours for a duration of 7 days. Cephalexin is preferred for its effectiveness in treating skin infections despite the inconvenience of frequent dosing. - If significant improvement is observed after 5 days of cephalexin treatment, it is acceptable to discontinue the medication. - Advise against squeezing the cyst to prevent further inflammation. - Recommend applying a hot compress to the cyst to aid in reducing inflammation. - Schedule a follow-up appointment for the removal of the cyst after February 24, 2025, ensuring the cyst is less inflamed before proceeding with removal. Prescription - Cephalexin, every 6 hours for 7 days. If significant improvement after 5 days, may stop. Appointments - Follow-up appointment to remove cyst after February 24, 2025 Not available 02/12/2025 12:35:09 03/18/2025 03/18/2025 1. atopic dermatitis. Patient complains of chronic pruritis, especially at night. Recommend daily antihistamine, can increase to 4pills /day. Benadryl at night time HC cream PRN for pruritis. Patient also complains of excessive sweating and malodor. Recommend deodarant with aluminum chloride. Not available 03/18/2025 11:10:00 05/27/2025 05/27/2025 1. NUB of the lower back and R upper arm, DN r/o melanoma. RV for excisions. Risk of bleeding, scarring and infection discussed 2. Solar Lentigo - Observation. Return if change. Sun protection stressed 3. Seborrheic Keratoses - benign. Observation. Return if change 4. Angioma - Observation. Return if change Skin Cancer talk given - warning signs of malignancy, ACDEs Sun protection talk given - SPF 30 or higher must be applied and reapplied every 2-3 hours. Protective clothing such as hats, sunglasses and UPF clothing recommended. Avoidance of the strongest sun hours from 10am-4pm. Warning signs of melanoma discussed. Monthly self exams stressed. Return 1 year for repeat CSE This visit is being performed by Jossie Burns PA-C under the direct supervision of Braydon Wallis DO who was physically present in the office and available for immediate consultation. The treatment plan was discussed and agreed upon by the supervising provider. Not available 05/27/2025 11:54:23 06/03/2025 06/03/2025 Assessment - Atrial fibrillation (A-fib) or atrial flutter not currently detected, as EKG results were normal. - Chronic neck pain with muscle discomfort, potentially related to radiculopathy, not fully resolved by facet injection. Plan - Performed an EKG to assess current heart rhythm and ensure no atrial fibrillation or flutter is present. - Try CBD products, such as gummies or tablets, for management of neck pain. Visit a dispensary for more information on available options. - Schedule a COVID booster at a local pharmacy before traveling in June. Updated vaccines may not be available at the clinic in time. - Schedule the next annual appointment in October. A reminder has been set for this upcoming visit. [id number] Not available 06/03/2025 09:53:27 Plan of Treatment Reminders Order Date Submit Date Provider Last Modified By Organization Details Last Modified Time Details Appointments MEDICAR E CATINA VALADEZ S 2025 09:45A M Kelley Mi RN Not available Not available Not available Derm Procedu re Excisio n 30 2025 09:00A M ALYSHA RAM Not available Not available Not available Lab surgica l patholo gy study - cyst r/o maligna ncy 2024 025 JOYCE [facility] (Centralized Electronic Ordering - All Locations), Patient Can Go To The Location Of Their Choice, [id number] 03/18/2025 14:38:08 Referral None recorde d. Procedures None recorde d. Surgeries None recorde d. Imaging electro cardiog candice 2024 025 [place] [address] Main Office, [address] [place] [address], [address], [place], [address], 06/03/2025 09:55:58 Medication Orders cephale jossie 500 mg capsule 2024 025 [email or web address] Not available 06/03/2025 09:23:41 Patient TargetsNo targets recorded. Patient Instructions Encounter Date Encounter Id Patient Instructions Last Modified By Organization Details Last Modified Time 06/03/2025 [id number] Based on our discussion, I have outlined the following instructions for you: - You had a heart test done to check your heart rhythm and make sure there are no problems like irregular heartbeats. - You can try using CBD products, like gummies or tablets, to help with your neck pain. You can visit a dispensary to learn more about what options are available. - Make an appointment at a local pharmacy to get your COVID booster shot before you travel in June, since the clinic may not have the updated vaccine in time. - Remember to schedule your next yearly check-up in October. A reminder has already been set for you. Thank you again for your visit, and we look forward to supporting you in your journey to better health. [id number] Not available 06/03/2025 09:53:29 Reason for Referral None Reported. Results Created Date Observation Date Name Description Value Unit Range Abnormal Flag Note LastModifiedBy Organization Detail LastModifiedTime 04/02/2004/02/2025 TICK- BORNE DISEA SE AB PROFI LE result comments: Commen t Antib kateryna titer s may be negat yovany in the first 7-10 days of illne ss. A four- fold rise in IgG antib kateryna titer s for Babes ia micro ti, Anapl asma phago cytop hilum , and/o r Ehrli ysabel chaff eensi s in paire d sampl es (acut e and conva lesce nt) suppo rts the diagn osis of babes iosis , anapl asmos is, and/o r ehrli chios is, respe ctive ly. Not Available [facility] ([facility]) [address] [place], [address], 04/08/2025 18:05:49 04/02/20 25 04/03/2025 TICK- BORNE DISEA SE AB PROFI LE lyme total antibody concetta Negati ve negati ve Lyme antib odies not detec osvaldo. Refle x testi ng is not indic ated. No labor atory evide nce of infec tion with B. burgd orfer i (Lyme disea se). Negat yovany resul ts may occur in patie nts recen tly infec osvaldo (less than or equal to 14 days) with B. burgd orfer i. If recen t infec tion is suspe cted, repea t testi ng on a new sampl e colle cted in 7 to 14 days is recom jones d. Not Available [facility] ([facility]) [address] [facility], [place], [address], 04/08/2025 18:05:49 04/02/20 25 04/06/2025 TICK- BORNE DISEA SE AB PROFI LE babesia microti IgG <1:10 neg:<1 :10 Not Available [facility] ([facility]) [address] [place], [address], 04/08/2025 18:05:49 04/02/20 25 04/07/2025 TICK- BORNE DISEA SE AB PROFI LE A. phagocytophi lum IgG Negati ve neg:<1 :64 Not Available [facility] ([facility]) [address] [place], [address], 04/08/2025 18:05:49 04/02/20 25 04/08/2025 TICK- BORNE DISEA SE AB PROFI LE E. chaffeensis IgG Negati ve neg:<1 :64 Not Available [facility] ([facility]) [address] [place], [address], 04/08/2025 18:05:49 06/03/20 elect ernesto murrellgr am No observ ation record ed. [email or web address] Main Office [address] [facility]. [address], [place], [address], 06/03/2025 09:53:48 06/03/20 elect ernesto diogr am No observ ation record ed. ion Main Office [address] [facility]. [address], [place], [address], 06/03/2025 10:17:26 Result Notes None recorded. Problems Name Problem SNOMED Code Status Onset Date Resolution Date Notes Provider Name and Address Organization Details Recorded Time Hyperlipid emia 70761680 Active 2021 Amirah Agudelo null, [place] [facility] 15:28:06 Transient cerebral ischemia 961957035 Active 2021April 2021 Amirah Agudelo null, [place] [facility] 15:28:44 Gastroesop hageal reflux disease 573008932 Active 2021 Amirah Aguedlo null, [place] [facility] 15:28:53 Osteoarthr itis 016181511 Active 2021 hip arthroplas ty 2020 Amirah Agudelo null, [place] [facility] 15:30:32 Atrial flutter 0737754 Active 2021 flutter ablation 12/05/21 Amirah linton, [place] - [facility] 15:29:22 Long-term current use of anticoagul ant 255729360 Active 2023 Braydonsam Wallis DO [address] [facility], [facility] [address], [place], [address], [place] - [facility] 4 10:50:17 History of Malignant melanoma 760677512 Active 2024 left upper arm Adela Vidal [address] [facility], [address], [place], [address], [place] [facility] 09:13:18 Problem Notes None recorded. Procedures Surgical History Date Name Laterality Status Provider Name and Address Organization Details Recorded Time 03/18/20 25 Suture/Staple removal completed Adela Drake [address] [address], [place], [address], [place] [facility] 03/18/2025 10:34:34 03/10/20 25 Dermatology Excision completed ALYSHA RAM [address] [address], [place], [address], [place] [facility] 03/10/2025 09:50:02 12/11/19 25 Dermatology Excision completed JOSSIE BURNS PA [address] [facility] [address], [place], [address], [place] [facility] 12/11/2024 10:23:55 08/03/20 20 Most Recent Mammogram completed Olena Colon [place] [facility] 12/14/2021 09:56:16 10/15/19 15 Date of Last Colonoscopy completed Olena Colon [place] [facility] 12/14/2021 09:56:16 10/15/19 13 Joint Replacement [place] Colon [place] [facility] 03/15/2022 09:00:29 Cardiac Surgery completed Olena Colon [place] [facility] 12/14/2021 09:56:48 Hernia Repair completed Olena Colon [place] [facility] 12/14/2021 09:56:48 Appendectomy completed Olena Colon [place] [facility] 12/14/2021 09:56:48 Back Surgery completed Olena Colon [place] [facility] 12/14/2021 09:56:48 Tonsillectomy completed Olena Colon [place] [facility] 12/14/2021 09:56:48 Knee Replacement completed Olena Colon M A - [facility] 12/14/2021 09:56:48 Eye Surgery completed Olena Colon [place] [facility] 12/14/2021 09:56:48 LASIK completed Olena Colon [place] [facility] 12/14/2021 09:56:48 Hip Replacement completed Olena Colon [place] [facility] 12/14/2021 09:56:48 Imaging Results None recorded. Procedure Notes None recorded. Medical Equipment None Reported. Allergies Allergen ID Allergen Name Allergen Category Reaction Reaction Severity Criticality Documentation Date Start Date Code Code System Note Provider Name and Address Organization Details Recorded Time 426 oxycodone medicatio n nausea Not available Not available 12/14/2021 7804 RxNorm Olena Wilkinson null, [facility] - [facility] 09:55:39 5494 mint extract food,medi cation Not available Not available Not available 02/12/2024 39519 04 RxNorm Jossie Domingo null, [facility] 4 09:55:24 Medications Name Sig Start Date Stop Date Status Note LastModified by Organization Details LastModified Time celecoxib 200 mg capsule TAKE 1 CAPSULE BY MOUTH TWICE DAILY NEEDED FOR MODERATE PAIN 12/13 completed Not Available Not Available Not Available terconazole 0.4 % vaginal cream insert 1 applicato rful vaginally at bedtime for 7 days 02/04 completed Not Available Not Available Not Available atorvastati n 80 mg tablet TAKE 1 TABLET BY MOUTH DAILY 03/12 completed Not Available Not Available Not Available diltiazem CD 180 mg capsule,ext ended release 24 hr take 1 capsule by mouth once daily 05/06 completed Not Available Not Available Not Available fluconazole 150 mg tablet take 1 tablet by mouth A ONE TIME DOSE repeat if needed in 72 hours AND THEN TAKE IT WEEK 01/14 completed Not Available Not Available Not Available diltiazem CD 240 mg capsule,ext ended release 24 hr take 1 capsule by mouth once daily 01/28 completed Not Available Not Available Not Available fluconazole 200 mg tablet 06/03 completed Not Available Not Available Not Available prednisone 20 mg tablet take 2 tablets by mouth once daily for 5 days 04/14 completed Not Available Not Available Not Available clobetasol 0.05 % topical cream APPLY THIN FILM EVERY NIGHT FOR 4 WEEKS, THEN EVERY OTHER NIGHT F... (REFER TO PRESCRIPT ION NOTES). 01/28 completed Not Available Not Available Not Available sumatriptan 50 mg tablet take 1 tablet by mouth if needed for 28 DAYS for migraines 06/30 completed Not Available Not Available Not Available diphenoxyla te-atropine 2.5 mg-0.025 mg tablet take 1 tablet by mouth twice a day 06/03 completed Not Available Not Available Not Available topiramate 25 mg tablet take 1 tablet by mouth at bedtime 03/12 completed Not Available Not Available Not Available diltiazem CD 360 mg capsule,ext ended release 24 hr 10/16 completed Not Available Not Available Not Available triamcinolo ne acetonide 0.1 % topical cream APPLY A THIN LAYER TO THE AFFECTED AREA TWICE DAILY 06/30 completed Not Available Not Available Not Available amoxicillin 500 mg tablet take 1 tablet by mouth every 8 hours for 7 days 02/04 completed Not Available Not Available Not Available pantoprazol e 20 mg tablet,ivana yed release take 1 tablet by mouth twice a day 01/28 completed Not Available Not Available Not Available ketorolac 0.5 % eye drops INSTILL 1 DROP THREE TIMES DAILY IN OPERATIVE EYE STARTING 2 DAYS PRIOR TO SURGERY TAPER DIRECTED 12/13 completed Not Available Not Available Not Available propranolol 40 mg tablet TAKE 1 TABLET BY MOUTH TWICE DAILY 03/12 completed Not Available Not Available Not Available warfarin 6 mg tablet Take 3 tablets every day by oral route. 12/21 completed Not Available Not Available Not Available amitriptyli ne 25 mg tablet take 1 tablet daily as needed 09/01 completed Not Available Not Available Not Available prednisolon e acetate 1 % eye drops,suspe nsion INSTILL 1 DROP RGHT EYE FOUR TIMES DAILY FOR 4 DAYS 02/04 completed Not Available Not Available Not Available amitriptyli ne 10 mg tablet take 1 tablet by mouth at bedtime 07/23 completed Not Available Not Available Not Available meclizine 25 mg tablet take 1 tablet by mouth three times a day if needed 02/04 completed Not Available Not Available Not Available cephalexin 500 mg capsule take 1 capsule by mouth every 6 hours for 7 days 06/03 completed Not Available Not Available Not Available pantoprazol e 40 mg tablet,ivnaa yed release TAKE 1 TABLET BY MOUTH DAILY FOR 14 DAYS 12/13 completed Not Available Not Available Not Available clotrimazol e-betametha sone 1 %-0.05 % topical cream APPLY TO AFFECTED AREA TOPICALLY 2 TIMES A DAY 06/30 completed Not Available Not Available Not Available warfarin 2 mg tablet TAKE 1 TO 4 TABLETS BY MOUTH EVERY DAY DIRECTED BY [facility] 03/12 completed Not Available Not Available Not Available omeprazole 20 mg capsule,del ayed release take 1 capsule by mouth once daily 06/03 completed Not Available Not Available Not Available aspirin 81 mg chewable tablet CHEW 1 TABLET BY MOUTH EVERY DAY 12/13 completed Not Available Not Available Not Available diltiazem CD 120 mg capsule,ext ended release 24 hr Take 2 capsules every day by oral route for 90 days. 2024 active Not Available Not Available Not Avai lable lisinopril 5 mg tablet TAKE 1 TABLET BY MOUTH DAILY 03/12 completed Not Available Not Available Not Available digoxin 125 mcg (0.125 mg) tablet 10/16 completed Not Available Not Available Not Available diltiazem ER 60 mg capsule,ext ended release 12 hr take 1 capsule by mouth twice a day for 14 days 09/17 completed Not Available Not Available Not Available gabapentin 100 mg capsule 09/01 completed Not Available Not Available Not Available metoprolol succinate ER 25 mg tablet,exte nded release 24 hr take 1 tablet by mouth once daily 06/03 completed Not Available Not Available Not Available clobetasol 0.05 % topical ointment APPLY TOPICALLY TO THE AFFECTED AREA TWICE DAILY FOR 3 DAYS, THEN... (REFER TO PRESCRIPT ION NOTES). 02/04 completed Not Available Not Available Not Available estradiol 0.01% (0.1 mg/gram) vaginal cream INSERT 1 GRAM VAGINALLY TWICE WEEKLY 02/11 completed Not Available Not Available Not Available albuterol sulfate HFA 90 mcg/actuati on aerosol inhaler Inhale 2 puffs every 4 hours by inhalatio n route for 30 days. active Not Available Not Available No t Available clotrimazol e 1 % topical cream APPLY TOPICALLY TO GROIN AND BREAST AREA TWICE A DAY FOR 14 DAYS 02/11 completed Not Available Not Available Not Available dicyclomine 10 mg capsule take 1 capsule by mouth four times a day 06/03 completed Not Available Not Available Not Available enoxaparin 120 mg/0.8 mL subcutaneou s syringe 12/13 completed Not Available Not Available Not Available cyclobenzap rine 5 mg tablet take 1 tablet by mouth once daily if needed for 30 DAYS 09/01 completed Not Available Not Available Not Available OraMagicRx mouthwash take 5 millilite rs by mouth four times a day if needed 07/23 completed Not Available Not Available Not Available rosuvastati n 20 mg tablet take 1 tablet by mouth once daily 04/14 completed Not Available Not Available Not Available nitrofurant oin monohydrate /macrocryst als 100 mg capsule take 1 capsule by mouth every 12 hours for 5 days 03/12 completed Not Available Not Available Not Available [facility] 100,000 unit/gram topical powder APPLY TO THE AFFECTED AREA(S) BY TOPICAL ROUTE 2 TIMES PER DAY 06/03 completed Not Available Not Available Not Available Multivitami n 50 Plus 1 tablet daily 06/03 completed Not Available Not Available Not Available Eliquis 5 mg tablet take 1 tablet by mouth twice a day 2024 active Not Available Not Available Not Avai lable Ozempic 0.25 mg or 0.5 mg (2 mg/1.5 mL) subcutaneou s pen injector Inject 0.25 mg every week by subcutane ous route as directed for 28 days. 02/11 completed Not Available Not Available Not Available Ozempic 1 mg/dose (4 mg/3 mL) subcutaneou s pen injector INJECT 0.75 MILLILITE RS (1 MILLIGRAM ) SUBCUTANE OUSLY ONCE EVERY WEEK active Not Available Not Available No t Available Wegovy 2.4 mg/0.75 mL subcutaneou s pen injector INJECT 0.75 ML EVERY WEEK BY SUBCUTANE OUS ROUTE FOR 28 DAYS. active Not Available Not Available No t Available Wegovy 1.7 mg/0.75 mL subcutaneou s pen injector 12/18 completed Not Available Not Available Not Available Wegovy 1 mg/0.5 mL subcutaneou s pen injector 12/18 completed Not Available Not Available Not Available Wegovy 0.25 mg/0.5 mL subcutaneou s pen injector inject 0.25 milligram subcutane ously every week 11/18 completed Not Available Not Available Not Available Wegovy 0.5 mg/0.5 mL subcutaneou s pen injector 12/18 completed Not Available Not Available Not Available Mounjaro 2.5 mg/0.5 mL subcutaneou s pen injector 02/11 completed Not Available Not Available Not Available Vitals Date Recorded Body height Body mass index (BMI) Body weight Oxygen saturation Oxygen saturation in Arterial blood by Pulse oximetry Heart rate Systolic And Diastolic Provider Name and Address Organization Details Last Updated DateTime 171.45 cm 32.7 kg/m2 50373.5 8 g 98 % 98 % 94 /min 142/86 mm[Hg] Rosanna hdez [place] [facility] 09:25:50 Social History Question Answer Notes LastModified by [employer] Contacts+ Details LastModified Time Tobacco Smoking Status Former Smoker Olena Wilkinson shaila [facility] 03/15/2022 09:00:25 Do You Have An Advance Directive? Yes Information not available 03/15/2022 How Much Tobacco Do You Smoke? No Information not available 07/26/2022 Sex: Unknown Functional Status Question Answer Note LastModified by [employer]acts+ Details LastModified Time Do you use any illicit or recreational drugs? No [email or web address] Information not available 03/15/2022 What is your level of alcohol consumption? None Information not available 03/15/2022 Do you or have you ever used smokeless tobacco? Never used smokeless tobacco Information not available 07/26/2022 Are you currently employed? No [email or web address] Information not available 03/15/2022 Mental Status None recorded. Family History Relationship Description Onset Age of this Age Resolved Age Notes LastModified by Organization Details LastModified Time Paternal Grandfather Malignant neoplastic disease [email or web address] Not available 2021 09:55:57 Mother Malignant neoplastic disease [email or web address] Not available 2021 09:55:57 Father Heart disease [email or web address] Not available 2021 09:55:57 Father Myocardial infarction [email or web address] Not available 12/14 09:55:57 Brother Myocardial infarction [email or web address] Not available 12/14 09:55:57 Brother Heart disease [email or web address] Not available 2021 09:55:57 Sister Malignant neoplastic disease pt. added direct ly (03/05) [email or web address] Not available 03/05/2023 11:22:23 Notes:sister and mother h/o NMSC Medical History Condition Response Colonoscopy Y Muscle, Joint, or Bone Problems Y Vision or Eye Problems Y Arthritis Y Headaches N Heart Problems Y Skin Problems Y Substance Use N Heart Disease N Hypertension N Gynecological History Statement/Question Response Sexual Problems? N Most Recent Mammogram 08/03/2020 Date of Last Colonoscopy 10/15/2014 Obstetrics History GPAL:G 0 P 0 0 0 0 Immunizations Vaccine Type Date Status Note Provider Nam e and Address Organization Details Recorded Time Tdap 2 completed Mirta Cintron NP [address] [address], [place], [address], [place] [facility] 07/26/2022 16:50:09 zoster recombinant 2 completed Suzanna Cobos [address] [place] [address], [address], [place] [facility] 10/31/2022 15:15:14 Influenza, high-dose, quadrivalent, PF 2 completed Jossie Domingo null, [place] [facility] 02/07/2023 15:35:58 COVID-19, mRNA, LNP-S, bivalent, PF, 50 mcg/0.5 mL or 25mcg/0.25 mL dose 2 completed Jossie Domingo null, [place] [facility] 02/07/2023 15:35:58 Influenza, high-dose, quadrivalent, PF 3 completed Suzanna Cobos [address] [place] [address], [address], [place] [facility] 08/07/2023 10:14:36 COVID-19, mRNA, LNP-S, PF, 50 mcg/0.5 mL 3 completed Rosanna Medina null, [place] [facility] 10/16/2023 10:20:44 COVID-19, mRNA, LNP-S, PF, 100 mcg/0.5mL dose or 50 mcg/0.25mL dose 2 completed Olena Wilkinson null, [place] [facility] 03/15/2022 09:01:51 zoster recombinant 4 completed Estella Lazar RN [address] [address], [place], [address], [place] [facility] 10/16/2024 10:14:04 Influenza, high-dose, trivalent, PF 4 completed Estella Lazar RN [address] [address], [place], [address], [place] [facility] 10/16/2024 10:14:04 COVID-19, mRNA, LNP-S, PF, 50 mcg/0.5 mL 4 completed Estella Lazar RN [address] [facility] [address], [place], [address], [place] [facility] 10/16/2024 10:14:39 Pneumococcal conjugate PCV20, polysaccharide [id number] conjugate, adjuvant, PF 5 completed Not Available [facility] 06/03/2025 09:15:40 RSV, recombinant, protein subunit RSVpreF, adjuvant reconstituted, 0.5 mL, PF 5 completed Not Available [facility] 06/03/2025 09:15:40 Influenza, split virus, quadrivalent, preservative 1 completed Olena Wilkinson null, [place] [facility] 12/14/2021 09:57:48 COVID-19, mRNA, LNP-S, PF, 100 mcg/0.5mL dose or 50 mcg/0.25mL dose 1 completed Olena Wilkinson null, [place] [facility] 12/14/2021 09:57:48 COVID-19, mRNA, LNP-S, PF, 100 mcg/0.5mL dose or 50 mcg/0.25mL dose 1 completed Olena Wilkinson null, [place] [facility] 12/14/2021 09:57:48 COVID-19, mRNA, LNP-S, PF, 100 mcg/0.5mL dose or 50 mcg/0.25mL dose 1 completed Olena Wilkinson null, [place] [facility] 12/14/2021 09:57:48 Past Encounters Encounter ID Performer Location Encounter Start Date Encounter Closed Date Diagnosis/Indication Diagnosis SNOMED-CT Code Diagnosis ICD10 Code Diagnosis IMO Codes Diagnosis Note 1970 Amirah Agudelo NP Main Office [address] [place] [address],[address] [place] [address] 12/14/2021 09:49:04 12/15/2021 16:53:20 Hyperlipidemia 94129512 E78.5 On statin. TIA in April. LDL 96. continue healthy lifestyle efforts. Atrial arrhythmia 989473 09 I49.8 aflutter and afib. S/P aflutter ablation 12/05/[address] Garrett. Has follow up in 4 weeks. Feeling generally not well and relates this to the medication s. On warfarin for anticoagul ation. With hx. of atrial arrhythmia and TIA anticoagul ation will always be strong recommenda tion, but we can continue to discuss risk /benefits to medical therapy going forward. Denies signs of sleep apnea. She will contine to try to walk more in nicer weather and focus on heart healthy diet. She would like to lose weight. Essential hypertension 85031786 I10 Increased over past several months. No meds or issues with BP prior to April 2021. She stopped lisinopril on her own. She states in the hospital for ablation she hadn't had any meds and BP was normal. BP is well controlled today off lisinopril and on diltiazem alone. Cont. lifestyle modificati ons. 2219 Amirah Agudelo, JAYDA Main Office [address] [facility],[address] [place] [place] [address] 12/21/2021 09:41:55 12/22/2021 13:19:27 Headache 47881231 R51.9 She is very stressed about the medication s she is on due to TIA then diagnosis of atrial flutter/ fib last year. I think this may be contributi ng to headache. Seeing Dr. Garrett on 01/05 electrophy siologist who did ablation. She did not have any symptoms on Eliquis, so she thinks maybe the Coumadin is causing some side effects. The reason she switched was cost. She does not want to be giving [employer] that much money for medication as she feels as criminal. The Coumadin however seems to be limiting her dietary choices. She is trying to lose weight, but worried about what she is eating and when. My advice for her is to stop the lisinopril , stop the atorvastat in for a couple weeks to see if it helps her feel better in general, continue Coumadin until she sees Dr. Garrett then if she needs to remain on anticoagul ation I do recommend that she switch to Eliquis as it is easier and less stress. Advised her to call her therapist and touch base as she has not done that in a while and I think a lot of her issues are coming to terms with having medical issues. Prior to her TIA in April 2021 she was not on any medication and very healthy. Encouraged her to get her walking in on these nicer days coming up and consider getting a massage or craniosacr al work for her headaches. Keep follow up with me March 15. 5451 Amirah Agudelo NP Main Office [address] [place] [address],[address] [place] [address] 03/15/2022 08:51:29 03/15/2022 09:25:59 Atrial flutter 9532909 I48.92 s/p ablation. No documented recurrence . On Eliquis and diltizem. Transient cerebral ischemia 358011376 G45.9 History of TIA April 2021. On Eliquis. 16544 Mirta Cintron NP Main Office [address] [place] [address],[address] [facility] [place] [address] 06/08/2022 14:13:27 06/08/2022 17:48:04 Heartburn 72538755 R12 Hx burning mouth syndrome. Reasonable to trial amitriptyl ine which helped in the past. Reviewed can cause dizziness, lightheade dness. Call if s/e occur. Can try magic mouthwash too. Dizzy spells 044934856 R 42 Resolved. ? r/t vertigo, recurrence of a.flutter less ilkely TIA.She will call for cardiology appt. If symptoms recur we will try to expediate. Reviewed hospital records, labs + imaging. Pain of ri ght knee joint 0483719260 26947 M25.561 Try topical diclofenac . Has upcoming appt with her orthopedic surgeon- appreciate input. Hyperlipidemia 97829716 E78.5 69816 Mirta Cintron NP Main Office [address] [place] [address],[address] [facility] [place] [address] 07/26/2022 08:57:23 07/26/2022 09:53:17 Active or passive immunization 778715946 Z23 - Encouraged to receive external shingles and influenza vaccine Screening for osteoporosis 165283390 Z13.820 She reports taking a multivitam in, encouraged to check calcium level in vitamin and to increase vitamin D and calcium levels in dietary and lifestyle habits.- Encouraged to schedule DEXA bone scan- Encouraged to continue yoga and massage therapies Hyperlipidemia 68395932 E78.5 She has a history of taking an anti-hyper lipidemia medication , she d/c the med as per her choice and due to side effects, reported feeling unwell, aware of her risks as she has a history of TIA and plaque formation on imaging.- Obtain lipid panel- Encouraged to start a high intensity statin if her cholestrol was elevated. Will f/u with results Hepatitis C screening 41 2637212 Z11.59 10004 Mirta Cintron NP Main Office [address] [place] [address],[address] [facility] [place] [address] 09/01/2022 11:10:34 09/01/2022 11:49:03 Vaginitis 79288580 N76.0 Requests refill of topical medication that she uses PRN, and normally gets from [facility]. Per patient, [facility] is hesitant to give oral fluconazol e due to concern for interactio n with cardiac meds. Dizzy spells 616661360 R 42 Resolved. ? r/t vertigo, recurrence of a.flutter less ilkely TIA as dizziness is only symptom. No symptoms today, unable to replicate symptoms with jaylen hallpike. ? related to meniere's, or more benign cause, i.e. allergies/ head congestion . Unlikely migraines. Will call if symptoms occur more frequently . Advised push fluids regularly. Reviewed recent CTA head neck without significan t stenosis or blockage or evidence of stroke.Joseph duran continue with stroke prophylaxi s as she is prescribed . 51594 Mirta Cintron NP Main Office [address] [facility],[address] [place] [address] 02/07/2023 15:27:51 02/07/2023 16:16:47 Urine looks dark 89839312 R82.998 Ua negative for infection. Pt states she is drinking 1 qt of fluid daily. Advised her to increase to 2 qts. Will check labs including bun/creat and LFTs although liver dysfunctio n less likely, but she did recently start on statin drug. I asked pt about possibilit y of OAB and that we could start medication to treat this, but she declines- will consider. Vaginitis 52464122 N76.0 Pt should continue to follow up with [facility] whom she is already establishe d with and due for follow up, as she has not responded to first line treatments including vaginal lubricants , topical estrogen, fluconazol e, etc. Will f/u with results of self swab re: possible infectious causes. Hyperlipidemia 38461792 E78.5 Consider trial of holding statin and seeing if her skin symptoms resolve, although no rash to speak of. However, suspect statin s/e is less likely as her skin problems have been going on for years and statin was initiated in past 1 yr. Pruritic disorder 539634 002 L29.9 Advised increase hydration as above, regular use of emollients , try occlusive ointment i.e. vaseline at night if itchy. Try to avoid regular use of triamcinol one as it can cause rebound symptoms. 91132 Mirta Cintron NP Main Office [address] [facility],[address] [place] [address] 03/08/2023 12:53:04 03/08/2023 14:57:31 Prediabetes 389969668 R73.03 Reviewed recommende d lifestyle interventi ons. WIll refer to RD, and recheck 3 months. recommend goal of weight loss of 5-10% body weight. Pruritic disorder 282304 002 L29.9 No rash. Consider some neuralgia. She is adverse to medication s. Could consider PT. For now, she will try arnica gel. Discussed regular use of HC cream can create cycle which is difficult to break, so suggest she stop topical steroid treatment. Let me know if this persists. 75313 Mirta Cintron NP Main Office [address] [facility],[address] [place] [address] 04/18/2023 11:11:48 04/18/2023 11:38:32 Swelling of bilateral lower limbs 874118008 M79.89 Resolved. Unlikely related to CHF or kidney problems, consider varicose veins. Encourage regular ambulation , avoid excess sodium intake. Pain of right wrist 3169 975110 67528 M25.531 Likely overuse vs sprain. Can try topical voltaren gel + continue use of splint. Consider imaging + referral to specialist if persists. Diarrhea 31760837 R19.7 Intermitte nt. Unlikely celiac or gluten intoleranc e as she is able to tolerate some foods with gluten without any issue. Consider IBS. Try keeping food/sympt om diary to pinpoint triggers. Call if worsening. Can try peppermint oil for spasms. 61706 Mirta Cintron NP Main Office [address] [place] [address] [address] [place] [address] 06/08/2023 10:07:34 06/08/2023 10:51:33 Atopic dermatitis 41611626 L20.9 Ok to refill. Pain in right thumb 1076 173534 023247 M79.644 Likely some OA combined with tenosynovi tis. Refer to hand surgery. Prediabetes 020241155 R7 3.03 Reviewed recommende d lifestyle interventi ons. Encouraged her to continue with weight watchers, exercise. check a1c in 3 months. Osteoarthritis 332418798 M19.90 Pt finding this is interferin g with activities that she enjoys. Should not use nsaids due to NOAC. Discussed can try topical voltaren, could try collagen or turmeric, although there is not much data on safety/int eraction with eliquis. Would be ok to try topical CBD. Encouraged regular activity. 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 Would be ok to hold for dental extraction , if necessary, depending on the amount of work that oral surgeon expects will be done. 77817 Braydonsam Wallis DO Main Office [address] [place] [address] [address] [place] [address] 08/07/2023 09:59:36 08/07/2023 10:53:05 Pain in cervical spine 165090188 M54.2 Atrial flutter 1594450 I 48.92 23364 Wilfrido Cameron RN Main Office [address] [facility] [address] [place] [address] 08/15/2023 10:52:28 08/15/2023 11:26:15 Atrial flutter 7677200 I48.[address] Wallis. Continue with current medication s. If any new and/or worsening symptoms call this office. Follow-up appointmen t with Dr. Wallis 10/16/23 at 10:20am. 74820 Braydon Wallis DO Main Office [address] [place] [address] [address] [place] [address] 09/17/2023 11:15:53 09/17/2023 11:47:17 Benign paroxysmal positional vertigo 237192063 H81.10 Likely peripheral . Reviewed imaging. Neck pain 90594567 M54.2 PT starting 10/02 Gastroesop hageal reflux disease 875559472 K21.9 restart ppi 40mg once daily Impaired f asting glycemia 201823001 R73.01 07006 Braydon Wallis DO Main Office [address] [place] [address] [address] [place] [address] 10/16/2023 10:15:35 10/16/2023 10:46:35 Candidiasis of vagina 76911997 B37.31 Vertigo 062449468 R42 Gastroesop hageal reflux disease 749055997 K21.9 restart ppi 40mg once daily Atrial flutter 6342403 I 48.92 Hyperlipidemia 43284360 E78.5 Transient cerebral ischemia 089248735 G45.9 Long-term current use of anticoagulant 588014158 Z79.01 Morbid obesity 844985219 E66.01 63733 Braydon Wallis DO Main Office [address] [place] [address] [place] [address] 01/15/2024 09:28:35 01/15/2024 10:13:10 Chronic daily headache 2046278856 71202 R51.9 Transient cerebral ischemia 087938871 G45.9 Atrial flutter 4429639 I 48.92 Has ongoing f/u with cardiology Prediabetes 554569793 R7 3.03 Body mass index 30+ - obesity 843724871 Z68.37 Nocturia 828739211 R35.1 39021 Braydon Wallis DO Main Office [address] [place] [address] [address] [place] [address] 01/29/2024 13:36:04 01/29/2024 14:38:45 Atrial flutter 5818471 I48.92 37158 Braydon Wallis DO Main Office [address] [place] [address] [address] [place] [address] 02/12/2024 09:51:56 02/12/2024 10:20:28 Atrial flutter 5299030 I48.92 Has ongoing f/u with cardiology Gastroesop hageal reflux disease 215806801 K21.9 restart ppi 40mg once daily Transient cerebral ischemia 079342314 G45.9 Binocular diplopia 93376 5008 H53.2 Has optho f/u, no focal deficits Body mass index 30+ - obesity 520829081 Z68.37 805996 Braydon Wallis, DO Main Office [address] [place] [address] [address] [place] [address] 03/24/2024 14:36:15 03/24/2024 15:55:34 Migraine without aura 66836115 G43.009 Hyperglycemia 85850153 R 73.9 Transient cerebral ischemia 306513524 G45.9 [id number] Braydon Wallis DO Main Office [address] [place] [address] [place] [address] 04/14/2024 13:36:16 04/14/2024 14:30:21 Paroxysmal atrial fibrillation 087020605 I48.0 Long-term current use of anticoagulant 947843391 Z79.01 Essential hypertension 01781668 I10 497347 Braydon Wallis DO Main Office [address] [place] [address] [address] [place] [address] 05/06/2024 10:32:33 05/06/2024 11:06:50 Gastroesophageal reflux disease 196388322 K21.9 restart ppi 40mg once daily Transient cerebral ischemia 278213492 G45.9 Atrial flutter 4379835 I 48.92 Has ongoing f/u with cardiology Body mass index 30+ - obesity 433785967 Z68.37 827149 Braydon Wallis DO Main Office [address] [place] [address] [address] [place] [address] 05/14/2024 08:54:18 05/14/2024 09:32:05 Body mass index 30+ - obesity 600017207 Z68.41 162141 Braydon Wallis DO Main Office [address] [place] [address] [address] [place] [address] 06/30/2024 09:13:20 06/30/2024 09:43:17 Atrial flutter 3803407 I48.92 Has ongoing f/u with cardiology Body mass index 30+ - obesity 876066537 Z68.37 Cervical radiculopathy 77748015 M54.12 [id number] Braydon Wallis DO Main Office [address] [place] [address] [address] [place] [address] 09/01/2024 09:07:49 09/01/2024 09:49:29 Transient cerebral ischemia 740650155 G45.9 Body mass index 30+ - obesity 550034041 Z68.37 Arthritis of facet joint of cervical spine 1785665063 2324294 M47.812 714601 BERT GUERRA PA-C Main Office [address] [place] [address] [facility] [address] 09/25/2024 09:39:34 09/25/2024 11:20:09 Upper respiratory infection 79421223 J06.9 669774 Braydon Wallis DO Main Office [address] [place] [address] [place] [address] 10/16/2024 09:54:29 10/16/2024 10:41:36 Adult health examination 445732637 Z00.00 Upper resp iratory infection 59124070 J06.9 678853 ALYSHA RAM Main Office [address] [place] [address] [address] [place] [address] 11/18/2024 10:32:21 11/18/2024 11:35:47 History of Malignant melanoma 956445632 Z85.89 Hyperhidrosis 953008706 R61 Itching of skin 82891501 0 L29.9 Dermatophytosis 43598743 B35.6 Neoplasm o f uncertain behavior of skin 44974955 D48.5 Inflamed s eborrheic keratosis 081239592 L82.0 Seborrheic keratosis 394 343336 L82.1 735453 ALYSHA RAM Main Office [address] [place] [address] [address] [place] [address] 12/11/2024 09:52:07 12/11/2024 10:28:59 Neoplasm of uncertain behavior of skin 98662939 D48.5 946691 Braydonsam Wallis DO Main Office [address] [place] [address] [place] [address] 12/23/2024 10:55:41 12/23/2024 11:32:00 Gastro-esophageal reflux disease with esophagitis 198278097 K21.00 Irritable bowel syndrome with diarrhea 681391388 K58.0 Atrial flutter 3959922 I 48.92 Has ongoing f/u with cardiology 503127 Braydonsam Wallis DO Main Office [address] [place] [address] [place] [address] 01/28/2025 11:08:44 01/28/2025 11:35:41 Gastroesophageal reflux disease 087712487 K21.9 restart ppi 40mg once daily Hyperlipidemia 40111842 E78.5 Body mass index 40+ - severely obese 176615600 Z68.41 868572 ALYSHA RAM Main Office [address] [place] [address] [place] [address] 02/12/2025 11:22:50 02/12/2025 11:41:49 Neoplasm of uncertain behavior of skin 44804408 D48.5 41483 Solar lentigo 01785617 L 81.4 1105 363413 ALYSHA RAM Main Office [address] [place] [address] [place] [address] 03/10/2025 09:21:04 03/10/2025 09:50:32 Neoplasm of uncertain behavior of skin 57349359 D48.5 81921 [id number] ALYSHA RAM Main Office [address] [place] [address] [place] [address] 03/18/2025 10:23:32 03/18/2025 10:42:57 Atopic dermatitis 11618951 L20.9 7169624 391202 ALYSHA RAM Main Office [address] [place] [address] [place] [address] 05/27/2025 10:51:03 05/27/2025 11:20:21 History of melanoma in situ of skin 0137477522 106 Z86.061 9486270 Family his tory of malignant neoplasm of skin 044586897 Z80.8 833793 Solar lentigo 77786012 L 81.4 1102 Seborrheic keratosis 394 548093 L82.1 09483 Hemangioma of skin 07140 006 D18.01 705908 Neoplasm o f uncertain behavior of skin 10502098 D48.5 87890 150517 Braydon Wallis DO Main Office [address] [place] [address],[address] [place] [address] 06/03/2025 09:14:39 06/03/2025 09:55:57 Long-term current use of anticoagulant 860600473 Z79.01 Atrial flutter 8428574 I 48.92 Has ongoing f/u with cardiology Chronic neck pain 861976 0595 107 M54.2 G89.29 411933 PT starting 10/02 Health Concerns Section Related Observation LastModified by Organization Detai ls LastModified Time None Recorded Concern Status LastModified by Organization Details LastModified Time None Recorded Advance Directives Directive Y: Payers Insurance Date Sequence Insurance Name Policy Number Policy Tompkins Covered Member ID Tompkins Member ID Guarantor Name 05/27/2025 1 [place] (MEDICARE [place]PLACEMENT HMO) [id number] Justine Cobos [id number] Justine Papito 05/27/2025 1 [place] [employer] Justine Cobos [id number] Justine Papito 05/31/2025 1 [facility]: [place] BLUE (MEDICARE REPLACEMENT PPO) [id number] Justine Cobos [id number] [facility] Papito Notes Date Note Type Note Provider Name and Address Organization Details Recorded Time 02/12/2025 text/html ROS as noted in the HPI Patient reports painful cyst next to right eye. Also has a couple other spots she wants checked on her face. - Noticed a cyst that has grown larger and become painful over the past couple of weeks.- Previously, the cyst was filled with pus and could be squeezed, but now it is painful and nothing comes out.- Scheduled for heart surgery (ablation on the right ventricle) in 12 days; had left ventricle ablation 2 years ago.- Sensitive to yeast infections in the mouth when taking antibiotics; carries fluconazole for this reason.- Noticed a new spot on the side of the nose and another on the face, which were not present before. ALYSHA RAM [address] [facility], [place], [address], [place] [facility] 02/12/2025 12:35:29 03/18/2025 text/html Patient is here for suture removal. JOSSIE ALYSHA BURNS [address] [facility], [address], [place], [address], [place] [facility] 03/18/2025 11:10:16 05/27/2025 text/html Established patient presents today for a full skin exam. 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 Mother and sister h/o NMSC. Patient has a couple lesions she would like checked out more closely. JOSSIE ALYSHA BURNS [address] [facility], [facility] [address], [place], [address], [place] [facility] 05/27/2025 11:55:08 06/03/2025 text/html ROS as noted in the HPI Wil[place] Cobos, 75-year-old female - Underwent cardiac ablation in February 2025 - Heart rate increased to 94 bpm a few days prior to visit, previously 75 bpm - Experienced breathlessness and fluttery sensation in chest starting a few days prior to visit - History of atrial fibrillation, taking diltiazem and metoprolol as needed - Chronic neck pain, worsening over time; facet injection provided relief for pinched nerve but not for muscle pain - Four sessions of laser treatment for neck pain with variable comfort; some nights unable to sleep due to neck discomfort - Topical CBD used for knee and thumb pain, not used on neck due to greasiness - Concern about possible interaction between CBD and atrial fibrillation medications - Scheduled for knee surgery in August 2025 due to shifted knee pad; pre-op appointments arranged - Last COVID booster received in Fall 2023 - Planned travel to [place] June 17-2024 Braydonsam Wallis, [address] [facility], [facility] [address], [place], [address], [place] [facility] 06/03/2025 09:54:27 OBGyn Episode No OBEpisode recorded.
== END 2025-07-30 14:20 | disposition home or self-care (01) ==
LOC: HO.HOS 13:20
PROVIDERS: Visit Provider Physician Assistant
DX: Z96.651 Presence of right artificial knee joint (principal)
CPT/HCPCS: 99024